=== PATIENT | male | born 1955 | race Caucasian/White ===

== ENCOUNTER 2017-06-17 05:25 | Inpatient (IN) | payer BC, SELFPAY ==
[2017-05-27 10:15] VITALS: BP 134/85; PULSE 68; RESP 17; TEMP 36.9; O2SAT 98; BMI 23.3
--- NOTE | 2017-05-27 10:31 | RAD_ITS ---
STUDY: X-RAY CHEST REASON FOR EXAM: Male, 61 years old. Cough. Preoperative evaluation. TECHNIQUE: PA and lateral views of the chest. COMPARISON: Comparison is made with prior study March 02, 2013. FINDINGS: Hyperinflation. Increased linear markings at the left lung base suggestive of linear atelectasis and/or scarring. No acute infiltrate is seen. There is no demonstrated pleural abnormality. Normal size heart. Normal mediastinum and kenrick. Normal visualized pulmonary arteries. There is atherosclerotic calcification of the aortic arch with tortuosity. There is demineralization of the osseous structures. Normal visualized ribs, clavicles, and shoulders. There is no demonstrated abnormality of the visualized soft tissue structures of the upper abdomen. RAD/Chest PA and Lateral IMPRESSION: Mild increase in markings at the left lung base suggestive of linear scarring and/or atelectasis. Electronically Signed: Justyn Lowe MD at 11:15 EST Tel [phone], Service support ,
--- NOTE | 2017-05-27 10:31 | SDCEKG_ITS ---
Test Reason : Blood Pressure : / mmHG Vent. Rate : 063 BPM Atrial Rate : 063 BPM P-R Int : 196 ms QRS Dur : 086 ms QT Int : 394 ms P-R-T Axes : 059 034 051 degrees QTc Int : 403 ms Normal sinus rhythm Normal ECG Confirmed by NATY DONALDSON ([id number]), desk editor JEEVAN ZAPATA ([id number]) on 05/28/2017 11:32:13 AM Referred By: KANDIS PALM Confirmed By:NATY DONALDSON
[2017-05-27 10:56] LABS: Hematocrit 38.9 % (40-54); Hemoglobin 12.4 g/dl (13.0-16.5); Mean Corp Hgb Conc 31.9 g/gl (32-36); Mean Corpuscular Volume 87.8 fL (80-94); Platelet Count 317 K/mm3 (150-450); RBC Distribution Width CV 14.6 % (11.6-14.6); RBC Distribution Width SD 47.1 fl (35.1-43.9); Red Blood Count 4.43 M/mm3 (4.6-6.2); Scan Indicated on CBC? Y/N NO; White Blood Count 8.8 K/mm3 (4.4-11.0)
[2017-05-27 11:43] LABS: Anion Gap 5 (5-15); BUN 15 mg/dL (7-18); BUN/Creat Ratio 17.1 RATIO (10-20); Calcium,Total 8.8 mg/dL (8.5-10.1); Chloride 106 mmol/L (98-107); Creatinine, Serum 0.88 mg/dL (0.70-1.30); EST Glomerular Filtration Rate 94 mL/min (>60); Est Glom Filt Rate - Afr Amer 113 mL/min (>60); Estimated Creatinine Clearance 93.89 ml/min; Glucose 93 mg/dL (70-110); Potassium 4.4 mmol/L (3.5-5.1); Sodium Level 140 mmol/L (136-145)
[2017-06-17] VITALS (11 sets, daily range): BP systolic 113–149; BP diastolic 68–99; PULSE 60–80; RESP 16–18; TEMP 36.2–36.7; O2SAT 95–100; BMI 23.3; BMI 24.3
[2017-06-17 06:19] LABS: Anion Gap 6 (5-15); BUN 11 mg/dL (7-18); Calcium,Total 8.5 mg/dL (8.5-10.1); Chloride 108 mmol/L (98-107); Creatinine, Serum 0.92 mg/dL (0.70-1.30); EST Glomerular Filtration Rate 89 mL/min (>60); Est Glom Filt Rate - Afr Amer 107 mL/min (>60); Estimated Creatinine Clearance 89.81 ml/min; Glucose 88 mg/dL (74-106); Potassium 3.9 mmol/L (3.5-5.1); Sodium Level 141 mmol/L (136-145)
[2017-06-17] MEDS: Cefazolin 2 GM in 0.9% Normal Saline 100 ML IV (07:23)
--- NOTE | 2017-06-17 07:30 | PROST_PTH ---
PATIENT: ISA HAM LOC: MS3 U#:[id number] AGE/SX: 61/M [place] [facility] [place]: Dr. Jey Becerra MD : 1955 BED: 1 DIS: 06/19/2017 SPEC #: [id number] RECD: 06/18/17 08:23 STATUS: CYNDEE YOSELIN #: [id number] CAMILO: 06/17/17 07:[address]: Jey Becerra DEPT: SURGICAL PATHOLOGY RECD BY: Piper Damon ENTERED: 06/18/17 11:46 SP TYPE: PROSTATE OTHR DR: Dr. Lucius Mahoney MD Tissues: A - Prostate, NOS B - Lymph node of pelvis, NOS C - Lymph node of pelvis, NOS D - Adipose tissue E - Vas deferens, NOS Procedures: Surgery Specimen Level IV Surgery Specimen Level V Surgery Specimen Level HEADER OPERATION: Lap robotic, prostatectomy, radical PRE-OP DIAGNOSIS: Prostate cancer TISSUE SUBMITTED: A. Prostate, B. Left pelvic lymph node, C. Right pelvic lymph node, D. Fat over prostate, E. Right vas deferens and seminal vesicle MICROSCOPIC DIAGNOSIS A. Prostate, radical prostatectomy: Prostatic adenocarcinoma. See cancer summary below. B. Left pelvic lymph node: Five out of five lymph nodes negative for metastatic carcinoma. C. Right pelvic lymph node: Four out of four lymph nodes negative for metastatic carcinoma. D. Fat over prostate: Mature adipose tissue, negative for carcinoma. E. Right vas deferens and seminal vesicle: Seminal vesicle and vas deferens, negative for carcinoma. PROSTATE CANCER (RADICAL) SUMMARY: Procedure ? radical prostatectomy Prostate size ? 6 cm transversely, 4 cm from apex to base and 4 cm anterior-posteriorly Prostate weight ? 74.9 gm Lymph node sampling ? pelvic lymph node dissection Histologic type ? adenocarcinoma (acinar) Histologic grade (Opal Pattern): Primary pattern - 3 Secondary pattern - 4 Tertiary pattern ? not identified Total Opal score - 7 Tumor Quantitation: Proportion (%) of prostate involved by tumor - ~20% Tumor size ? see comment Extraprostatic extension ? not identified Seminal vesicle invasion - not identified Margins ? posterior margin is focally involved by invasive carcinoma (left lobe). Treatment effect on carcinoma ? no known presurgical therapy. Lymph-Vascular invasion - not identified Perineural invasion - present Regional lymph nodes: Number examined - 9 Number involved - 0 Distant metastasis ? not applicable Additional pathologic findings ? benign prostatic hyperplasia, glandular and stromal type. - Chronic inflammation and basal cell hyperplasia. Ancillary studies ? not performed PATHOLOGIC STAGE: pT2c pN0 Mx The above summary is in compliance with [employer] [place] [employer] (CAP) Cancer Protocols Checklist and [place] [employer] Committee on Cancer (AJCC), Staging Manual, 8th Ed. SJ:yohan 06/19/17 COMMENT The tumor is predominantly present in left lobe involving apical, mid portion and basal portion of prostate and present in slides #6, 8, 11, 12, 15, 17, 19 and measures approximately 3.5 x 1.5 x 0.7 cm (measured microscopically). The tumor in the left lobe is present in slide #10 and 13 and measures approximately 2 x 0.5 x 0.6 cm (measured microscopically). Please make reference to previous specimen ([id number]) right prostate, mid, core biopsy and left prostate, mid, core biopsy and left prostate, base, core biopsy with diagnosis of prostatic adenocarcinoma. This case has been reviewed in consultation with Dr. Mark who concurs with the above diagnosis. MICROSCOPIC DESCRIPTION Slides are reviewed. GROSS DESCRIPTION A - Received in fixative is one container labeled with the patient's name and designated prostate. The specimen consists of a radical prostatectomy specimen consisting of prostate with attached portion of right seminal vesicle and vas deferens and left seminal vesicle and vas deferens. The specimen weighs 74.9 gm. The prostate measures 6 cm transversely, 4 cm from apex to base and 4 cm anterior-posteriorly. The portion of right seminal vesicle measures 1.5 x 0.5 x 0.5 cm and right vas deferens measures 2 cm in length and 0.5 cm in diameter. The left seminal vesicle measures 1 x 0.5 x 0.5 cm and left vas deferens measures 2 cm in length and 0.6 cm in diameter. The specimen is inked as follows: anterior ? yellow, posterior ? black, right lateral prostate ? blue, left lateral prostate ? green. Serial sections do not reveal any obvious mass lesion. Drying Machine Back Tender sections are submitted in 20 cassettes as follows: 1 ? right seminal vesicle and vas deferens, 2 ? left seminal vesicle and vas deferens, 3 ? apical (urethral) margin, en face, 4 ? bladder base margin, en face, 5 ? most basal portion of prostate, 69 ? apical portion, prostate, 10-15 ? middle portion, prostate, 16-20 ? basal portion, prostate. B - Received in fixative is one container labeled with the patient's name and designated left pelvic lymph node. The specimen consists of a piece of yellow adipose tissue measuring 3 x 2 x 0.5 cm. One lymph node is identified measuring 1 cm in greatest dimension. It is bisected. The entire specimen is submitted in two cassettes as follows: 1 ? one bisected lymph node inked black and portion of adipose tissue, 2 ? rest of the specimen. C - Received in fixative is one container labeled with the patient's name and designated right pelvic lymph node. The specimen consists of a piece of yellow adipose tissue measuring 3.5 x 3 x 0.5 cm. One lymph node is identified. The entire specimen is submitted in two cassettes as follows: 1 ? one bisected lymph node inked black and portion of adipose tissue, 2 ? rest of the specimen. D - Received in fixative is one container labeled with the patient's name and designated fat over prostate. The specimen consists of a piece of yellow adipose tissue measuring 5.5 x 2 x 1 cm. No mass lesion is identified. The entire specimen is submitted in two cassettes. E - Received in fixative is one container labeled with the patient's name and designated right vas deferens and seminal vesicle. The specimen consists of a portion of vas deferens measuring 2 cm in length and 0.5 cm in diameter. Sections do not reveal any mass lesion. Also present in the container is a piece of seminal vesicle measuring 2 x 1 x 0.5 cm. This piece is bisected and does not reveal any mass lesion. The entire specimen is submitted in two cassettes as follows: 1 ? vas deferens, 2 ? seminal vesicle. / LADARIUS:yohan 06/18/17 TC:0 CPT: 31138, 46294 x2, 72284 x2
[2017-06-17] MEDS: Bupivacaine Mpf 0.5% 30 ML VIAL (11:05)
--- NOTE | 2017-06-17 11:19 | OP.PCM_ITS ---
Problem List (1) Prostate cancer Status: Acute Report of Operation Date of Procedure: 06/17/17 Pre-Operative Diagnosis: Prostate cancer Post-Operative Diagnosis: Same Surgery/Procedure Performed:: Laparoscopic robotic assisted radical prostatectomy bilateral nerve sparing. Bilateral pelvic lymph node dissection. EMG nerve monitoring of the levator muscles and the urethra. Description of Surgical Findings:: 61-year-old male was taken back to the operating room after smooth induction of general anesthesia he was placed in dorsal lithotomy position. He is doing then positioned for approach to the prostate with a robotic approach. He did have prior abdominal surgery. His abdomen was shaved prepped and draped in the usual sterile fashion. I advanced a Veress needle into the peritoneal cavity in the upper abdomen I then filled the peritoneal cavity with CO2 gas I then placed a instructional assistant suction probe suction port 5 mm port in the right upper quadrant of the abdomen we then looked inside the abdomen with a 5 mm scope was a lot of adhesions in the anterior abdominal wall to prior midline incision from prioR sigmoid colectomy. I then placed my #1 robot trocar and then through this to use a scissors to sharply dissect these dense adhesions to the anterior midline of the umbilicus once this was released then I was able to place my camera chart trocar above the umbilicus placed by right arm trocar and my second right arm trocar and then replaced the enterocele trocar. The robot was docked using scissors and the right arm bipolar in the left arm and the progress in the third arm. Firstly able to go down deep into the pelvis behind the bladder and prostate was able to identify the vas deferens traces down inferior leads behind the bladder prostate dissected out the vas deferens and seminal vesicle on the right side we then went to the left side and dissected out the vas deferens and seminal vesicle on the left side using minimal electrocautery and dissecting this out I then created a space below the prostate to dissect towards the apex we then pulled out of the pelvis and proceeded to drop the bladder use the third arm to retract the bladder inferiorly incised the peritoneum along the medial umbilical ligament and drop the bladder into the space of Retzius and created the space also opened up the bladder wing on the left side and dropped the bladder and then we transected through the medial and median umbilical ligament. We then placed bladder on traction using the third arm and then created the space of Retzius a more cleaned out the fat over the prostate this was sent off as a separate specimen I then pulled back and looked at the pelvic lymph nodes of the left side identified the left iliac vein and this pelvic sidewall noted cloque and then dissected all the arnulfo tissue off the pelvic sidewall down to the obturator nerve that was identified use clips to control bleeding vessels and then this tissue was handed off as a specimen grossly appeared negative for sent off as a permanent. I then went to the right side identify the right iliac vein and identified the lymph node packet behind the iliac vein cleaned off the packet off the lateral sidewall place clips along the lateral sidewall and then cleaned the packet off the lateral sidewall down to the obturator nerve and the biomass boiler operator space was cleaned out and then put clips below the packet and this was handed off as a specimen once this was done the pelvic lymph node dissection was completed specimens were handed off a grossly appeared negative but these were sent for permanent I then proceeded with the prostate was incised the endopelvic fascia and the right side and the endopelvic fascia in the left side incised the fascia as it went over the dorsal vein complex dissected the dorsal vein complex circumferentially and then placed a stitch in the dorsal vein complex with a [id number] using a CT1 needle we then pulled back to the bladder and prostate junction remove the catheter back and forth and then dissected the bladder off the prostate using a fairly good bladder neck sparing technique staying right on the muscle of the bladder but not getting not violating the prostate tissue at all but dissecting the the bladder muscle off the prostate we then came across the catheter catheter was pulled pulled back and then pulled up use for traction and then dissected posteriorly between the bladder and the prostate finally the bladder was freed off the prostate. I then entered the posterior space that had already created and identified the vas deferens and seminal vesicle at this point then we used the needle EMG electrode 2 electrodes were placed one on the right side and one on the left side on the levator muscle we used the bipolar to stimulate the EMG and look for action potential was able to identify the nerves of the pudendal muscle deep in the pelvis on the left side and very deep in the pelvis and the right side action potential was stronger on the left than the right side both plexuses were identified I then used clips and clipped through the pedicle of the prostate on the right side and the pedicle proximal to the left side and identified the neurovascular bundle and this was teased off posteriorly off the prostate all the way up to the apex with no violation of the prostate. I then placed clips on the left pedicle and then dissected the neurovascular bundle on the left side all the way up to the prostate after after this was dissected all the way up then freed up the prostate and then circumferentially freed up the prostate around the urethra posteriorly and then transected through the dorsal vein complex and placed a second [id number] stitch in the dorsal vein complex to control bleeding we then dissected circumferentially around the urethra stump then transected through the urethra to separate the prostate from the urethral stump and did come through the midportion of the verumontanum posteriorly. The prostate was freed and put an Endo Catch bag we irrigated the pelvis extensively there was no bleeding. I then performed an anastomosis between the bladder neck and the urethra again this is better experience of the urethral stump was nice pitstop and also had a very small opening of the bladder neck size of the catheter we did his anastomosis coming from the 6:00 to the 12:00 running circumferentially posterior to anterior over a catheter we then placed the [place] tip catheter into the bladder this is irrigated there is no leakage from the anastomosis so decided not to leave a drain in. We then checked the urethra sphincter with the EMG probe again we checked for action potential and EMG and we did get the sphincter to contract with with stimulation with EMG probe after checking for electrolyte activity on the sphincter. We then extracted the prostate through the umbilicus closed the Guercio port with a dental Jeffy Ambrocio stitch and removed all the ports. Subcuticular stitches were placed patient's anesthetic was reversed and is taken back to the PACU in good condition. Type of Anesthesia:: General Drains: WHELAN - Admit VTE Documentation VTE Present on Admission: No VTE Mechan Device Prophylaxis: SCD's VTE Pharm Prophylaxis ordered?: No Reason prophylaxis not ordered:: Treatment Not Indicated
[2017-06-17] MEDS: Ketorolac 15 MG/ML Vial IV ×2 (11:57→17:25)
[2017-06-17] MEDS: 0.9% Normal Saline 1,000 ML 125 ML IV ×2 (12:29→17:23)
[2017-06-17] MEDS: HYDROcodone Bitartrate/Apap 5/325 Tablet PO ×2 (14:45→22:06)
[2017-06-17] MEDS: 0.9% NaCl Peripheral Flush Adult/Peds IV (17:26)
[2017-06-17] MEDS: Ciprofloxacin 500 MG Tablet PO (21:47)
[2017-06-17] MEDS: Docusate Sodium 100 MG Capsule 200 MG PO (21:47)
[2017-06-18] MEDS: Ketorolac 15 MG/ML Vial IV ×4 (00:03→17:55)
[2017-06-18] MEDS: 0.9% Normal Saline 1,000 ML 150 ML IV (01:38)
[2017-06-18 01:39] VITALS: BP 105/55; PULSE 51; RESP 18; TEMP 36.4; O2SAT 98
[2017-06-18 06:00] LABS: Hematocrit 28.7 % (40-54); Hemoglobin 9.2 g/dl (13.0-16.5); Mean Corp Hgb Conc 32.1 g/gl (32-36); Mean Corpuscular Hgb 28.3 pg (27.0-32.0); Mean Corpuscular Volume 88.3 fL (80-94); Mean Platelet Vol. 9.3 fl (6.2-12.0); Platelet Count 284 K/mm3 (150-450); RBC Distribution Width CV 15.1 % (11.6-14.6); RBC Distribution Width SD 49.1 fl (35.1-43.9); Red Blood Count 3.25 M/mm3 (4.6-6.2); White Blood Count 10.4 K/mm3 (4.4-11.0)
[2017-06-18 06:03] LABS: Scan Indicated on CBC? Y/N NO
[2017-06-18 06:18] LABS: Anion Gap 9 (5-15); BUN 14 mg/dL (7-18); BUN/Creat Ratio 16.3 RATIO (10-20); Calcium,Total 7.4 mg/dL (8.5-10.1); Chloride 110 mmol/L (98-107); Creatinine, Serum 0.86 mg/dL (0.70-1.30); EST Glomerular Filtration Rate 96 mL/min (>60); Est Glom Filt Rate - Afr Amer 116 mL/min (>60); Estimated Creatinine Clearance 93.14 ml/min; Glucose 102 mg/dL (74-106); Potassium 4.2 mmol/L (3.5-5.1); Sodium Level 144 mmol/L (136-145)
[2017-06-18] MEDS: HYDROcodone Bitartrate/Apap 5/325 Tablet PO ×2 (06:24→23:47)
--- NOTE | 2017-06-18 07:25 | PCM.PROGNOTE ---
Patient Problems: Active and Suspected Problems Prostate cancer (Acute) Subjective: doing well, has on bolus over night. - Physical Exam General: Alert, Oriented x3, Cooperative HEENT: Atraumatic, PERRLA, EOMI, Normocephalic Neck: Supple, No JVD, Negative Carotid Bruits Lungs: Clear to auscultation, Normal air movement Cardiovascular: Regular rate, No murmurs Abdomen: Bowel Sounds Present, Soft, Non Tender Extremities: No edema, Capillary Refill Less than 3 Seconds Skin: No rashes, No breakdown Musculoskeletal: No Tenderness to Palpation of Joints or Extremities Neurological: Cranial nerves II-XII grossly intact Psych/Mental Status: Normal Affect, Appropriate Vital Signs Temp Pulse Resp BP Pulse Ox 97.6 F L 51 L 18 105/55 L 98 06/18/17 01:39 06/18/17 01:39 06/18/17 01:39 06/18/17 01:39 06/18/17 01:39 Oxygen Delivery Method Room Air Weight: 78.8 kg Body Mass Index (BMI) 24.3 Intake and Output for Last 24 Hours 06/16/17 06/17/17 06/18/17 23:59 23:59 23:59 Intake Total 4285 / 4285 3246 / 3246 Output Total 275 / 275 600 / 600 Balance 4010 / 4010 2646 / 2646 Laboratory Tests Past 24 Hrs 06/18/17 06/18/17 05:32 05:32 WBC 10.4 RBC 3.25 L Hgb 9.2 L Hct 28.7 L MCV 88.3 MCH 28.3 MCHC 32.1 RDW 15.1 H RDW Differential 49.1 H Plt Count 284 MPV 9.3 Sodium 144 Potassium 4.2 Chloride 110 H Carbon Dioxide 25.0 Anion Gap 9 BUN 14 Creatinine 0.86 Estim Creat Clear Calc 93.14 Est GFR (MDRD) Af Amer 116 Est GFR (MDRD) Non-Af 96 BUN/Creatinine Ratio 16.3 Glucose 102 Calcium 7.4 L Assessment/Plan Active and Suspected Problems Prostate cancer (Acute) heplock ivf adv diet as ritchie ambulate home tomorrow in am.
--- NOTE | 2017-06-18 07:26 | PCM.DC.URO ---
Discharge Diet: No Restrictions, Light diet - advance as tolerated Discharge Activity: May not drive while taking narcotic pain medications. May shower in (days): 1 Call your doctor if your incision/area has: Continuous Slow Oozing, Sudden Increased Bleeding, Increased Pain/ Swelling, Increased Redness, Foul Smelling Discharge, Swelling at the incision site Call your doctor if you observe: Fever of 101 or Higher, Inability to have a bowel movement, Shortness of breath, Chest pain, Uncontrolled pain Suture Line Care: Avoid Pulling/Pushing, Avoid Pinching/Bending Cleanse incision/area with: Keep Dressing Clean & Dry Catheter: Velarde to leg bag, Velarde to large bag Drain: [place] Allergies/Adverse Reactions: Allergies No Known Allergies Allergy (Verified 05/27/17 10:10) Medications to take at Discharge Amlodipine [Norvasc] 5 mg PO DAILY 08/27/15 Aspirin [Aspirin, Baby] 81 mg PO DAILY 08/27/15 Lisinopril [Zestril] 5 mg PO DAILY 05/27/17 Ciprofloxacin [Cipro] 500 mg PO BID #20 tab 06/18/17 Docusate Sodium [Colace] 100 mg PO BID #20 cap 06/18/17 Hydrocodone/Acetaminophen [[place] 5-325 Tablet] 1 ea PO Q4H PRN PRN 5 Days #14 tab 06/18/17 The following prescriptions were given: Hydrocodone/Acetaminophen [[place] 5-325 Tablet] 1 ea PO Q4H PRN PRN 5 Days #14 tab PRN Reason: Pain Ciprofloxacin [Cipro] 500 mg PO BID #20 tab Docusate Sodium [Colace] 100 mg PO BID #20 cap Primary Care Physician: Eusebio Mahoney MD [Primary Care Provider] - Please Follow Up With: Jey Becerra MD - you will see [facility], Dr Beth will be available as well. When: Jun 25 at 10am
--- NOTE | 2017-06-18 07:32 | DS.PCM_ITS ---
Discharge Date and Diagnosis - Problem List Patient Problems: Active and Suspected Problems Prostate cancer (Acute) Date of Admission: 06/17/17 Date of Discharge: 06/19/17 - Primary Discharge Diagnosis Active and Suspected Problems Prostate cancer (Acute) Hospital Course and Treatment Operations: - - Robotic Prostatectomy Procedures: None Summary of Care Provided: The patient is a 61 year old male with prostate cancer, s/p radical prostectomy post op course normal, adv reg diet, ambulated, home with holguin to recover. Discharge Diet: No Restrictions, Light diet - advance as tolerated Discharge Activity: May not drive while taking narcotic pain medications. May shower in (days): 1 Call your doctor if your incision/area has: Continuous Slow Oozing, Sudden Increased Bleeding, Increased Pain/ Swelling, Increased Redness, Foul Smelling Discharge, Swelling at the incision site Call your doctor if you observe: Fever of 101 or Higher, Inability to have a bowel movement, Shortness of breath, Chest pain, Uncontrolled pain Suture Line Care: Avoid Pulling/Pushing, Avoid Pinching/Bending Cleanse incision/area with: Keep Dressing Clean & Dry Catheter: Holguin to leg bag, Holguin to large bag Drain: [place] Home Medications: Medications to take at Discharge Amlodipine [Norvasc] 5 mg PO DAILY 08/27/15 Aspirin [Aspirin, Baby] 81 mg PO DAILY 08/27/15 Lisinopril [Zestril] 5 mg PO DAILY 05/27/17 Ciprofloxacin [Cipro] 500 mg PO BID #20 tab 06/18/17 Docusate Sodium [Colace] 100 mg PO BID #20 cap 06/18/17 Hydrocodone/Acetaminophen [Star 5-325 Tablet] 1 ea PO Q4H PRN PRN 5 Days #14 tab 06/18/17 Following Prescrptions Were Given to Patient: Hydrocodone/Acetaminophen [Star 5-325 Tablet] 1 ea PO Q4H PRN PRN 5 Days #14 tab PRN Reason: Pain Ciprofloxacin [Cipro] 500 mg PO BID #20 tab Docusate Sodium [Colace] 100 mg PO BID #20 cap Primary Care Physician: Eusebio Mahoney MD [Primary Care Provider] - Please Follow Up With: Jey Becerra MD - you will see [facility], Dr Beth will be available as well. When: Jun 25 at 10am Meaningful Use Info Meaningful Use Diagnoses (Choose all that apply): None applicable
[2017-06-18 07:39] VITALS: BP 98/67; PULSE 66; RESP 16; TEMP 36.7; O2SAT 98
[2017-06-18 07:50] VITALS: O2SAT 99
[2017-06-18] MEDS: Docusate Sodium 100 MG Capsule 200 MG PO ×2 (08:06→21:52)
[2017-06-18] MEDS: amLODIPine 5 MG Tablet PO (08:06)
[2017-06-18] MEDS: Ciprofloxacin 500 MG Tablet PO ×2 (08:06→21:52)
[2017-06-18] MEDS: Lisinopril 5 MG Tablet PO (08:06)
--- NOTE | 2017-06-18 10:33 | CASEMGMT ---
RN CM Face to Face with patient for initial transition planning/care coordination assessment. RN CM introduced self and role at [facility]. Patient lying in bed, alert and oriented, family at bedside. Patient willing to participate in assessment and is able to answer all questions appropriately. Care providers, pharmacy, and demographics verified. See link attached. Patient wishes to discharge home, denies need for home health at this time. Patient states he has no further needs or concerns at this time. CM to follow for discharge planning needs that may arise. Disposition Plan: Patient to discharge home with family support and follow-up needs in place.
[2017-06-18] MEDS: 0.9% NaCl Peripheral Flush Adult/Peds IV ×2 (12:13→17:58)
[2017-06-18 13:45] VITALS: BP 120/74; PULSE 62; RESP 16; TEMP 36.8; O2SAT 98
[2017-06-18 20:00] VITALS: BP 136/84; PULSE 72; RESP 18; TEMP 36.4; O2SAT 96
[2017-06-19 02:00] VITALS: BP 121/74; PULSE 80; RESP 18; TEMP 37.1; O2SAT 97
[2017-06-19] MEDS: HYDROcodone Bitartrate/Apap 5/325 Tablet PO (06:05)
[2017-06-19 07:55] VITALS: O2SAT 98
[2017-06-19 08:00] VITALS: BP 135/85; PULSE 72; RESP 18; TEMP 37.2; O2SAT 98
[2017-06-19] MEDS: amLODIPine 5 MG Tablet PO (08:44)
[2017-06-19] MEDS: Ciprofloxacin 500 MG Tablet PO (08:44)
[2017-06-19] MEDS: Lisinopril 5 MG Tablet PO (08:44)
== END 2017-06-19 10:45 | disposition home or self-care (01) | DRG 707 ==
LOC: ACINP 05:26 → MS3 10:38
PROVIDERS: Anesthesiology; Admitting Provider Urology; Family Provider Family Medicine; PCP Family Medicine; Visit Provider Urology
PROC: 0VT04ZZ Resection of Prostate, Percutaneous Endoscopic Approach (ICD-10-PCS; CPT 55866; principal; 2017-06-17 07:10)
DX: C61 Malignant neoplasm of prostate (principal); C18.9 Malignant neoplasm of colon, unspecified; I10 Essential (primary) hypertension; Z79.82 Long term (current) use of aspirin; Z87.891 Personal history of nicotine dependence; R31.21 Asymptomatic microscopic hematuria; R97.20 Elevated prostate specific antigen [PSA]; R35.1 Nocturia
CPT/HCPCS: 36415; 80048; 85027; 86850; 86900; 88302; 88304; 88305; 88307; 88309; 97802; J7030; J7040; J7120; A4216; J2405

== ENCOUNTER → 2017-06-30 14:13 | Outpatient (CLI) | payer BC, SELFPAY ==
--- NOTE | 2017-06-30 14:15 | CT_ITS ---
STUDY: CT ABDOMEN AND PELVIS WITHOUT CONTRAST REASON FOR EXAM: Male, 61 years old. Prostate cancer, now recently status post prostatectomy. Abdominal pain and hematuria. Additional surgical history of appendectomy, partial colectomy, hernia repair. RADIATION DOSAGE (If Supplied By Facility): CTDIvol = ( 6.3 ) mGy, DLP = ( 317.7 ) mGycm TECHNIQUE: Transaxial images were obtained from the dome of the diaphragm to the symphysis pubis without oral contrast, and without intravenous contrast. Sagittal and coronal images were reconstructed. Individualized dose optimization techniques were used for this CT. COMPARISON: None. FINDINGS: Minor curvilinear scarring in the visualized lung bases. The visualized portions of the heart are within normal limits. Well-defined 1.55 x 1.45 x 1.55 cm subcapsular lesion of 17 Hounsfield unit density in the high right lobe of the liver suggests a complex cyst. A second similar appearing 7.5 mm lesion is seen in the anterior upper right lobe on series 2 image 15, and there is a third subcapsular 9 mm lesion in the anterior aspect of segment 4 on series 2 image 48.. There are 2 additional [id number] lesions in the inferior anteromedial right lobe of the liver. One is 9 mm (series 2 image 50), while the second is 13 x 10 x 12 mm (series 2 image 53, series 601 image 35). The diameter of the portal vein near the jil hepatis is 11.5 mm. Normal gallbladder and extrahepatic biliary system. The common bile duct diameter is 5 mm. There are 2 benign calcified granulomata of the spleen. Normal pancreas. Normal right adrenal gland. Stable borderline fullness of left adrenal gland. There is an exophytic 15 x 12 x 13 mm cortical cyst at the anterior hilar lip of the right kidney. A second 10 mm cortical cyst slightly more lateral anterior mid pole is only faintly visualized on series 2 image 62. Normal left kidney. No hydronephrosis. Normal visualized stomach. Normal small intestine. Ring of anastomotic sutures seen about the ascending colon in the mid right flank. There is non-visualization of the appendix. There is free intraperitoneal gas There is stable mild atherosclerotic calcification of the abdominal aorta with minor ectasia and tortuosity, but without a demonstrated aneurysm. Normal inferior vena cava. Normal retroperitoneum. The urinary bladder is collapsed around a Velarde catheter. Mildly heterogeneous 5.45 x 6.9 x 4.3 cm soft tissue density posterior to the bladder is likely a hematoma. The heterogeneous, mildly enlarged prostate gland that was inferior to the bladder floor on prior CT is no longer present. There is gas in the deep subcutaneous tissues of the right anterior abdominal wall, extending through the inguinal region into the visualized anterior right upper thigh. There is a very small left-sided inguinal hernia containing adipose tissue. There are stable degenerative changes of the visualized spine at L5-S1. Nearly 90 degree angulation between the first and second coccygeal segments is unchanged, as is near complete fusion across the sacroiliac joints. CT/Abdomen/Pelvis without Cont IMPRESSION: 1. The prostate gland has been removed. A 6.9 cm soft tissue density posterior to the urinary bladder is likely a hematoma. The bladder itself is decompressed around a Velarde catheter. 2. Gas in the deep subcutaneous tissues of the right anterior abdominal/pelvic wall, extending to the visualized anterior right upper thigh. Small volume intraperitoneal gas also noted. I discussed these findings with Dr. Becerra, who notes this is a common postsurgical finding secondary to insufflation under pressure used during the prostatectomy, even a few weeks after the procedure. 3. Stable cortical cysts in the anterior midpole of the right kidney. No hydronephrosis. 4. Stable low-density lesions in the liver consistent with complicated cysts. 5. Ring of anastomotic sutures again seen at the mid ascending colon. No sign of bowel obstruction. The appendix is not visualized. 6. Stable mild atherosclerotic calcification and ectasia of the abdominal aorta. 7. Stable degenerative changes of the spine and pelvis, as described. N.B. : The above information has been verbally conveyed by Vinnie Burks MD to Jey Becerra, Referring Physician, on 06/30/2017 15:06:41 (ET). Electronically Signed: Vinnie Burks MD at 15:14 EST , Service support , N.B. : The above information has been verbally conveyed by Vinnie Burks MD to Jey Becerra, Referring Physician, on 06/30/2017 15:06:41 (ET).
== END ==
PROVIDERS: Family Provider Family Medicine; PCP Family Medicine; Visit Provider Urology
DX: C61 Malignant neoplasm of prostate (principal); R10.9 Unspecified abdominal pain; R31.9 Hematuria, unspecified
CPT/HCPCS: 74176

== ENCOUNTER 2017-08-28 16:10 | Observation (INO) | payer BC, SELFPAY ==
[2017-08-28 16:11] VITALS: BP 170/113; PULSE 92; RESP 16; TEMP 35.8; O2SAT 99; BMI 23.3
--- NOTE | 2017-08-28 17:18 | CT_ITS ---
STUDY: CT BRAIN WITHOUT CONTRAST REASON FOR EXAM: Male, 62 years old. Dizziness RADIATION DOSAGE (If Supplied By Facility): CTDIvol = ( 44.99 ) mGy, DLP = ( 829.85 ) mGycm TECHNIQUE: Transaxial CT imaging of the brain was performed without administration of intravenous contrast material. Individualized dose optimization techniques were used for this CT. COMPARISON: None. FINDINGS: There is no acute bleed or infarct. There are normal white matter tracts. The ventricles are normal in configuration. There is no hydrocephalus. There is mucosal hypertrophy in the left maxillary sinus. The visualized paranasal sinuses are otherwise clear. The mastoid air cells are well aerated. There is no skull fracture. CT/Brain/Head without Contrast IMPRESSION: No acute intracranial abnormality. Left maxillary sinusitis. Electronically Signed: Kaushal Abreu, at 18:04 EDT Tel , Service support ,
[2017-08-28 17:40] LABS: Partial Thromboplast Time 32.7 Seconds (24.1-36.2); Prothrombin Time (Protime)PT. 13.4 SECONDS (11.7-14.9)
[2017-08-28 18:06] LABS: ALB/GLOB Ratio 0.8 RATIO (0.9-2.4); AST(SGOT) 9 U/L (15-37); Alanine Aminotransfer ALT/SGPT 10 U/L (16-61); Albumin, Serum 3.5 g/dL (3.2-5.0); Alkaline Phosphatase 85 U/L (45-117); BUN 15 mg/dL (7-18); BUN/Creat Ratio 16.1 RATIO (10-20); Calcium,Total 8.6 mg/dL (8.5-10.1); Creatinine, Serum 0.93 mg/dL (0.70-1.30); EST Glomerular Filtration Rate 88 mL/min (>60); Est Glom Filt Rate - Afr Amer 107 mL/min (>60); Estimated Creatinine Clearance 87.72 ml/min; Globulin 4.3 g/dL (2.2-4.2); Glucose 153 mg/dL (74-106); Protein, Total 7.8 g/dL (6.4-8.2)
[2017-08-28 18:07] LABS: Anion Gap 8 (5-15); Chloride 106 mmol/L (98-107); Potassium 3.1 mmol/L (3.5-5.1); Sodium Level 139 mmol/L (136-145)
[2017-08-28 20:40] VITALS: BP 123/89; PULSE 79; RESP 15; TEMP 36.8; O2SAT 96
[2017-08-28 23:00] VITALS: BP 118/76; PULSE 64; PULSE 75; RESP 16; TEMP 36.9; O2SAT 97
[2017-08-28 23:59] LABS: AST(SGOT) 8 U/L (15-37); Alanine Aminotransfer ALT/SGPT 9 U/L (16-61); Albumin, Serum 2.9 g/dL (3.2-5.0); Alkaline Phosphatase 74 U/L (45-117); Bilirubin, Direct 0.12 mg/dL (0.00-0.30); Globulin 3.8 g/dL (2.2-4.2); Protein, Total 6.7 g/dL (6.4-8.2); Thyroid Stim Hormone (TSH) 0.31 uIU/mL (0.358-3.74)
[2017-08-29 00:02] VITALS: BMI 23.3
--- NOTE | 2017-08-29 01:06 | ED.DCSUM_ITS ---
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 Elected dizzy spinning sensations with nausea 15 minutes after. Started vomiting EMS and here in the ED. States 5 days ago had similar episode 2 times which resolved. Again a week prior to that. Prior to initial symptoms no previous similar symptoms. Dealing with some congestion for the past week. No speech changes. No hemiparesis. Patient history of hypertension and prostate cancer with recent prostatectomy June 15 of this year, followed by Dr. Becerra. Denies abdominal pain. No chest pains or shortness of breath. Physical Examination: General: Alert and oriented ?3, mild distress HEENT: Normocephalic, atraumatic. Moist mucosa membranes. Right side horizontal nystagmus. Neck: supple, nontender. No meningismus Cardiovascular: Regular rate and rhythm, no murmurs Respiratory: Normal breath sounds, symmetric, no distress Abdomen: Soft, nontender, nondistended Extremities: Nontender, no edema, pulses intact ?4 Neuro: no focal neurological deficits. Test Results: EKG: Sinus rhythm [address] or T-wave changes. CT head negative. CBC normal. Potassium 3.1. Creatinine 0.92. Emergency Department Course and Treatment: Patient symptomatic in the ED. IV fluids given. Phenergan given. Nausea improved however he still had dizzy sensations. CT head negative. Patient was given Compazine 10 mg IV. Symptoms much more improved however still has symptoms. No previous similar symptoms past with acute dizziness. Discuss with hospitalist for admission. Treatment Plan: [] Disposition: Admission Impression: 1. Symptomatic vertigo 2. Hypokalemia This note was generated with [employer] software. It may contain incorrect words, spelling, and punctuation that were not noted in review of the chart prior to signing ED Disposition - Plan for ED Patient: Disposition: Home or Assisted Living Chief Complaint: Dizziness Diagnosis: Acute epidemic vertigo
--- NOTE | 2017-08-29 01:21 | ED.RN ---
see patient down time charting from [id number]
[2017-08-29 03:00] VITALS: PULSE 62
[2017-08-29 03:25] VITALS: BP 117/73; PULSE 77; RESP 14; TEMP 36.9; O2SAT 95
[2017-08-29 04:03] LABS: Absolute Lymphocyte Count 2.47 X10^3/ul (0.83-4.51); Absolute Neutrophil Count 6.4 X10^3/uL (2.0-7.7); Basophil# 0.04 X10^3/uL; Basophil% 0.4 % (0-1); Eosinophil# 0.14 X10^3/uL; Eosinophils% 1.4 % (0-5); Hematocrit 36.5 % (40-54); Hemoglobin 11.9 g/dl (13.0-16.5); Lymphocyte # 2.47 X10^3/ul (4.0); Lymphocyte % 25.1 % (19-41); Mean Corp Hgb Conc 32.6 g/gl (32-36); Mean Corpuscular Hgb 27.8 pg (27.0-32.0); Mean Corpuscular Volume 85.3 fL (80-94); Mean Platelet Vol. 8.6 fl (6.2-12.0); Monocyte# 0.79 X10^3/uL; Neutrophil # 6.37 X10^3/uL (2.7-7.7); Neutrophil % 64.9 % (47-70); Platelet Count 369 K/mm3 (150-450); RBC Distribution Width CV 13.7 % (11.6-14.6); RBC Distribution Width SD 42.8 fl (35.1-43.9); Red Blood Count 4.28 M/mm3 (4.6-6.2); White Blood Count 9.8 K/mm3 (4.4-11.0)
[2017-08-29 04:09] LABS: POSITIVE COUNT NO; POSITIVE DIFFERENTIAL NO; POSITIVE MORPHOLOGY NO
[2017-08-29 04:27] LABS: Anion Gap 7 (5-15); BUN 13 mg/dL (7-18); BUN/Creat Ratio 17.5 RATIO (10-20); Calcium,Total 8.5 mg/dL (8.5-10.1); Chloride 108 mmol/L (98-107); Creatinine, Serum 0.74 mg/dL (0.70-1.30); EST Glomerular Filtration Rate 114 mL/min (>60); Est Glom Filt Rate - Afr Amer 137 mL/min (>60); Estimated Creatinine Clearance 110.24 ml/min; Glucose 87 mg/dL (74-106); Potassium 3.9 mmol/L (3.5-5.1); Sodium Level 142 mmol/L (136-145)
[2017-08-29] MEDS: Enoxaparin 40 MG/0.4 ML Syringe SC (06:40)
[2017-08-29 06:57] VITALS: PULSE 70
--- NOTE | 2017-08-29 07:22 | MRI_ITS ---
STUDY: MRI BRAIN WITHOUT CONTRAST REASON FOR EXAM: Male, 62 years old. Dizziness, blurred vision and generalized weakness. TECHNIQUE: Standardized multiplanar fat and water weighted pulse sequences were obtained. COMPARISON: CT of the head dated August 28, 2017. FINDINGS: There is mild cerebral atrophy with widening of the extra-axial spaces and ventricular dilatation. Normal white matter tracts of the supratentorial brain. There is no evidence for recent intracranial ischemia or other cause of cytotoxic edema on diffusion weighted imaging (DWI). Normal T2* images of the brain without demonstrated susceptibility artifact. There is no demonstrated hemosiderin stain. Normal bilateral basal ganglia. Normal thalami. There is no extra-axial fluid accumulation. There appears to be a small right parafalcine nodule measuring approximately 7.4 x 11.8 x 9.1 mm in size. This could represent a small meningioma. Normal flow voids within the major intracranial circulation suggesting patency by spin echo criteria. Normal sella turcica, pituitary gland, infundibular stalk, optic chiasm and hypothalamus. Normal tectal plate and pineal gland. Normal midbrain, aide and medulla. Normal cerebellum. Normal basal cisterns. Normal bilateral temporal bones. Normal bilateral internal auditory canals. No demonstrated orbital abnormality, within the constraints of a routine brain study. There is moderate to comparison thickening in the left maxillary sinus, and left sphenoid sinus. There is mild mucoperiosteal thickening in the right maxillary sinus and bilateral ethmoid sinuses. Normal calvarium and skull base. Normal visualized soft tissue structures. Normal visualized upper cervical spine. MRI/Brain without Contrast IMPRESSION: 1. Involutional changes of the brain, as described above. 2. Apparent small right parafalcine nodule possibly representing meningioma. 3. No MR evidence for acute infarct. 4. Extensive chronic left maxillary, sphenoid and ethmoid sinus disease. Electronically Signed: Tali Henry MD at 11:41 EDT , Service support ,
[2017-08-29 07:25] VITALS: BP 117/74; PULSE 70; RESP 18; TEMP 36.8; O2SAT 96
--- NOTE | 2017-08-29 08:41 | PCM.HP.STD ---
Problem List (1) Acute epidemic vertigo Status: Chronic History of Present Illness Date of Admission: 08/28/17 Chief Complaint: Dizziness The patient is a 62 year old M past medical history of essential hypertension and prostate cancer status post recent prostatectomy who presented to the emergency room due to dizziness. 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 He described spinning sensations associated with nausea and vomiting. He activated the EMS and he was taken to the emergency room. He had similar episode 5 days prior but that resolved . In the emergency room included a CT scan of the brain there was none acute we are placing him in the hospital for further management. Past Medical History Past Medical History (Chronic Problems): Chronic Problems Acute epidemic vertigo (Chronic) Allergies No Known Allergies Allergy (Verified 08/28/17 16:13) Home Medications: Ambulatory Orders Medication Instructions Recorded Amlodipine [Norvasc] 5 mg PO DAILY 08/27/15 Aspirin [Aspirin, Baby] 81 mg PO DAILY 08/27/15 Lisinopril [Zestril] 10 mg PO DAILY 05/27/17 Docusate Sodium [Colace] 100 mg PO BID #20 cap 06/18/17 Hydrocodone/Acetaminophen [[place] 1 ea PO Q4H PRN PRN 5 Days #14 tab 06/18/17 5-325 Tablet] Meclizine HCl [Antivert] 25 mg PO Q6H PRN PRN #20 tab 08/29/17 Smoking Status: Former smoker Tobacco Use: Non-smoker - *Family History Maternal History Items: No pertinent history Review of Systems Comment: Review of systems VTE Information - Inpt Only VTE Present on Admission: No VTE Mechan Device Prophylaxis: SCD's VTE Pharm Prophylaxis ordered?: No - Physical Exam General: Alert, Oriented x3 HEENT: Atraumatic Neck: Supple, No JVD Lungs: Clear to auscultation, No wheeze, No rales Cardiovascular: Normal S1, Normal S2 Abdomen: Bowel Sounds Present, Soft, Non Tender Neurological: Cranial nerves II-XII grossly intact, Deep Tendon Reflexes 2+/4 and Symmetrical Vital Signs Temp Pulse Resp BP Pulse Ox 98.0 F 66 16 117/87 H 97 08/29/17 11:25 08/29/17 11:25 08/29/17 11:25 08/29/17 11:25 08/29/17 11:25 Oxygen Delivery Method Room Air Body Mass Index (BMI) 23.3 Assessment/Plan 1. intractable dizziness; has chronic vertigo but states the symptoms are different today. Will continue on as needed meclizine and will obtain MRI of the brain and go from there. 2. Hypertension; we will resume his home medications. 3. history of prostatic CA status post recent prostatectomy. 4. DVT Prophylaxis with Lovenox. Code Visit OBSV E&M: 34764 Initial observation care L3
[2017-08-29] MEDS: Aspirin 81 MG TAB.CHEW PO (10:25)
[2017-08-29 11:21] VITALS: PULSE 70
[2017-08-29 11:25] VITALS: BP 117/87; PULSE 66; RESP 16; TEMP 36.7; O2SAT 97
--- NOTE | 2017-08-29 13:56 | CASEMGMT ---
Face to Face with patient for initial transition planning/care coordination assessment. SELENA SEPULVEDA introduced self and role at [facility], pt voices understanding and consents to assessment at this time. Pt is sitting up in bed in no distress at this time. Pt A/O x4 at this time and answers all questions appropriately at this time. Care providers, pharmacy, and demographics verified. See attached link. Pt voices no further concerns/needs at this time. Advised pt to ask for CM if any further questions/concerns/needs arise, voices understanding. PLAN: [place] SELENA SEPULVEDA
--- NOTE | 2017-08-29 14:30 | PCM.DC ---
- Discharge Diagnoses Current Active Problems: Current Active and Chronic Problems Acute epidemic vertigo (Acute) You will use the following diet at home:: Cardiac Your food should be the consistency of: Regular Your liquids should be the consistency of: Regular/Thin Discharge Activity: Return to Normal Activity Additional Instructions: Outpatient vestibular therapy as ordered. Allergies/Adverse Reactions: Allergies No Known Allergies Allergy (Verified 08/28/17 16:13) Medications to take at Discharge Amlodipine [Norvasc] 5 mg PO DAILY 08/27/15 Aspirin [Aspirin, Baby] 81 mg PO DAILY 08/27/15 Lisinopril [Zestril] 10 mg PO DAILY 05/27/17 Docusate Sodium [Colace] 100 mg PO BID #20 cap 06/18/17 Hydrocodone/Acetaminophen [[place] 5-325 Tablet] 1 ea PO Q4H PRN PRN 5 Days #14 tab 06/18/17 Meclizine HCl [Antivert] 25 mg PO Q6H PRN PRN #20 tab 08/29/17 The following prescriptions were given: Meclizine HCl [Antivert] 25 mg PO Q6H PRN PRN #20 tab PRN Reason: Dizziness Primary Care Physician: Eusebio Mahoney MD [Primary Care Provider] - Please follow up with your Primary Care Physician in: 1-2 weeks Proposed Discharge Date: 08/29/17
[2017-08-29 14:47] VITALS: BMI 23.3
--- NOTE | 2017-08-29 15:01 | DS.PCM_ITS ---
<Isma Hilton - Last Filed: 08/29/17 14:50> Discharge Date and Diagnosis Date of Admission: 08/28/17 Date of Discharge: 08/29/17 - Primary Discharge Diagnosis Active and Suspected Problems Acute epidemic vertigo (Acute) - BPPV HTN sinusitis Hx prostate CA s/p radical prostetectomy Hospital Course and Treatment Imaging Results: 08/29/17 07:22 Brain without Contrast [MRI] Urgent - negative for acute infarct, , Involutional changes of the brain, small right parafalcine nodule possibly representing a meningioma, extensive chronic left maxillary sphenoid and ethmoid sinus disease Operations: None, - - Robotic Prostatectomy Procedures: None Summary of Care Provided: Physical exam on day of discharge: General: Resting comfortably NAD Psych: A/Ox3 normal affect HEENT: PEARRLA AT NC Neck: Supple NT CV: RRR no m/t/r/g/h Resp: CTA Abd: [id number] Soft NT no guarding or rigidity Ext: DP2+= no edema Skin: W/D normal turgor Lymph/Heme: No active bleeding or adenopathy Neuro: CN2-12 intact, mild slow nystagmus, lateral, with both left and right gaze. Unable to elicit vertigo or worsening nystagmus with Mary Jo-Hallpike maneuvers at this time. Hospital Course: The patient is a 62 year old M with a history of hypertension, prostate cancer status post radical prostatectomy, who presented to the emergency room with chief complaint of episodic dizziness that lasted for about 1-2 hours. He had had 2 prior episodes 1 1 week ago that lasted for about an hour, and 1 2 weeks ago that lasted for about an hour as well. These resolve spontaneously on their own and were associated with changing of head position. He did not notice any ringing in his ears and did not have any hearing changes. He described it as sudden onset of the room spinning. He had some associated nausea with it. He did not have any difficulty swallowing, facial droop, double vision, headache, focal weaknesses or paresthesias. He was given meclizine and admitted to the PCU. He had no events on the monitor. CT of the brain was without bleeding. An MRI of the brain was done for follow-up. Both CT and MRI did show significant sinusitis. He did state that he had recently been recovering from sinusitis. He also had a possible meningioma on MRI. He had no further dizziness after admission to the hospital. He was felt to have episodic vertigo from BPPV. He was given a prescription for meclizine, he was advised to try Mucinex to help clear out his sinuses. He was also given a prescription to pursue outpatient vestibular therapy. I advised him to follow- up with his PCP in 1-2 weeks. He was discharged home in stable condition. This patient was seen by Isma Hilton PA-C under the supervision of Doctor Lurdes.[] Discharge Diet: Low fat/ Low Cholesterol, 4000 mg Sodium Diet Discharge Activity: Return to Normal Activity Home Medications: Medications to take at Discharge Amlodipine [Norvasc] 5 mg PO DAILY 08/27/15 Aspirin [Aspirin, Baby] 81 mg PO DAILY 08/27/15 Lisinopril [Zestril] 10 mg PO DAILY 05/27/17 Docusate Sodium [Colace] 100 mg PO BID #20 cap 06/18/17 Hydrocodone/Acetaminophen [[place] 5-325 Tablet] 1 ea PO Q4H PRN PRN 5 Days #14 tab 06/18/17 Meclizine HCl [Antivert] 25 mg PO Q6H PRN PRN #20 tab 08/29/17 Following Prescrptions Were Given to Patient: Meclizine HCl [Antivert] 25 mg PO Q6H PRN PRN #20 tab PRN Reason: Dizziness Primary Care Physician: Eusebio Mahoney MD [Primary Care Provider] - Please follow up with your Primary Care Physician in: 1-2 weeks Please Follow Up With: Eusebio Mahoney MD Disposition: Home Minutes spent on discharge:: 40 Patient Condition:: Stable Medical Necessity - Tobacco Use Smoking Status: Former smoker Tobacco Use: Non-smoker Meaningful Use Info Meaningful Use Diagnoses (Choose all that apply): None applicable <Td Chatman - Last Filed: 08/30/17 07:18> Hospital Course and Treatment Operations: None, - Procedures: None Summary of Care Provided: Seen and examined independent. Agree the above note by the physician inventory control assistant. The patient is a 62 year old M presents with intermittent vertigo. But this episode lasted for about an hour. Just occurred spontaneously and worse with positional changes. Patient underwent a workup, including an MRI, that was negative. Given the patient's symptomatology, is my feeling the patient had benign paroxysmal positional vertigo. Recommend the patient take meclizine as needed with the patient was made aware that the meclizine would not fix the underlying process but recommend patient follow-up with the physical therapy for vestibular rehab. Patient was doing well and was discharged home. [] Discharge Diet: Low fat/ Low Cholesterol, 4000 mg Sodium Diet Discharge Activity: Return to Normal Activity Disposition: Home Patient Condition:: Stable Meaningful Use Info Meaningful Use Diagnoses (Choose all that apply): None applicable Code Visit OBSV E&M: 80405 Observation care discharge
== END 2017-08-29 14:31 | disposition home or self-care (01) ==
LOC: ED 16:52 → PCU 08-29 01:06
PROVIDERS: Admitting Provider Internal Medicine; Emergency Provider Emergency Medicine; Family Provider Family Medicine; PCP Family Medicine
DX: H81.10 Benign paroxysmal vertigo, unspecified ear (principal); I10 Essential (primary) hypertension; Z85.46 Personal history of malignant neoplasm of prostate; J32.0 Chronic maxillary sinusitis; E87.6 Hypokalemia; Z79.899 Other long term (current) drug therapy; Z79.82 Long term (current) use of aspirin; Z87.891 Personal history of nicotine dependence
CPT/HCPCS: 36415; 70450; 70551; 80048; 80053; 80076; 84443; 84484; 85025; 85610; 85730; 92526; 93005; 96372; 97110; 97161; 99218; 99281; 99283; J7030; G0378; J2405

== ENCOUNTER 2017-09-01 09:41 | Outpatient (RCR) | payer BC, SELFPAY ==
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
== END 2017-09-01 19:00 | disposition home or self-care (01) ==
LOC: PT 09:41
PROVIDERS: Family Provider Family Medicine; PCP Family Medicine; Visit Provider Physician Assistant
DX: R42 Dizziness and giddiness (principal)
CPT/HCPCS: 97162

== ENCOUNTER → 2017-09-01 10:50 | Outpatient (CLI) | payer BC, SELFPAY ==
[2017-09-01 12:10] LABS: PSA,Total- Diagnostic < 0.01 ng/mL (0.0-4.0)
== END ==
PROVIDERS: Family Provider Family Medicine; PCP Family Medicine; Visit Provider Urology
DX: C61 Malignant neoplasm of prostate (principal)
CPT/HCPCS: 36415; 84153

== ENCOUNTER → 2017-09-30 07:22 | Outpatient (CLI) | payer BC, SELFPAY ==
--- NOTE | 2017-09-30 07:24 | CT_ITS ---
STUDY: CT MAXILLOFACIAL SINUSES REASON FOR EXAM: Male, 62 years old. One-month history of sinusitis and vertigo. Patient has a history of prostate cancer and colon cancer. RADIATION DOSAGE (If Supplied By Facility): CTDIvol = ( 33.45 ) mGy, DLP = ( 748.17 ) mGycm TECHNIQUE: The patient was scanned in a multi detector CT scanner. High resolution axial imaging was performed without the administration of intravenous contrast material. Sagittal and coronal images were reconstructed. Individualized dose optimization techniques were used for this CT. COMPARISON: None. FINDINGS: FRONTAL SINUSES: Normal aeration, without mucosal inflammatory disease. ETHMOIDAL SINUSES: Mucosal thickening of the ethmoid sinuses bilaterally. MAXILLARY SINUSES: Mucosal thickening at the base of the left maxillary sinus. SPHENOIDAL SINUSES: Normal aeration, without mucosal inflammatory disease. There is patency of the bilateral maxillary infundibuli with normal uncinate processes, ethmoid bullae, and hiatus semilunaris. Normal bilateral middle turbinates. There is hypertrophy of the right inferior nasal turbinate. There is a left sided nasal septal deviation, but without a nasal septal spur. There is patency of the bilateral nasal airways. The visualized osseous structures are normal. The visualized bilateral orbital contents are normal. CT/Sinus/Facial Bone IMPRESSION: Mucosal thickening of the ethmoid sinuses and the inferior aspect of the left maxillary sinus. Electronically Signed: Justyn Lowe MD at 9:03 EDT Tel [phone], Service support ,
== END ==
PROVIDERS: Family Provider Family Medicine; PCP Family Medicine; Visit Provider Family Medicine
DX: J32.9 Chronic sinusitis, unspecified (principal)
CPT/HCPCS: 70486

== ENCOUNTER → 2017-12-07 13:18 | Outpatient (CLI) | payer BC, SELFPAY ==
[2017-12-07 14:39] LABS: PSA,Total- Diagnostic < 0.01 ng/mL (0.0-4.0)
== END ==
PROVIDERS: Family Provider Family Medicine; PCP Family Medicine; Visit Provider Urology
DX: C61 Malignant neoplasm of prostate (principal)
CPT/HCPCS: 36415; 84153

== ENCOUNTER → 2018-05-03 11:51 | Outpatient (CLI) | payer BC, SELFPAY ==
[2018-05-03 11:50] VITALS: BMI 24.3
[2018-05-03 15:29] LABS: Absolute Neutrophil Count 5.6 X10^3/uL (2.0-7.7); Basophil# 0.07 X10^3/uL; Basophil% 0.9 % (0-1); Eosinophil# 0.13 X10^3/uL; Eosinophils% 1.6 % (0-5); Hematocrit 39.1 % (40-54); Hemoglobin 12.5 g/dl (13.0-16.5); Lymphocyte % 18.8 % (19-41); Mean Corpuscular Hgb 27.5 pg (27.0-32.0); Mean Corpuscular Volume 85.9 fL (80-94); Monocyte# 0.65 X10^3/uL; Monocyte% 8.1 % (0-10); Neutrophil # 5.62 X10^3/uL (2.7-7.7); Neutrophil % 70.5 % (47-70); Platelet Count 420 K/mm3 (150-450); RBC Distribution Width CV 14.1 % (11.6-14.6); RBC Distribution Width SD 44.4 fl (35.1-43.9); Red Blood Count 4.55 M/mm3 (4.6-6.2)
[2018-05-03 15:35] LABS: POSITIVE COUNT NO; POSITIVE DIFFERENTIAL NO; POSITIVE MORPHOLOGY NO
[2018-05-03 15:41] LABS: ALB/GLOB Ratio 0.7 RATIO (0.9-2.4); AST(SGOT) 9 U/L (15-37); Alanine Aminotransfer ALT/SGPT 11 U/L (16-61); Albumin, Serum 3.1 g/dL (3.2-5.0); Alkaline Phosphatase 85 U/L (45-117); Anion Gap 7 (5-15); BUN 13 mg/dL (7-18); Calcium,Total 8.7 mg/dL (8.5-10.1); Chloride 107 mmol/L (98-107); EST Glomerular Filtration Rate 81 mL/min (>60); Est Glom Filt Rate - Afr Amer 98 mL/min (>60); Ferritin 79 ng/mL (26-388); Globulin 4.3 g/dL (2.2-4.2); Glucose 91 mg/dL (74-106); Iron 47 ug/dL (65-175); Potassium 4.2 mmol/L (3.5-5.1); Protein, Total 7.4 g/dL (6.4-8.2); Sodium Level 143 mmol/L (136-145); Thyroid Stim Hormone (TSH) 1.28 uIU/mL (0.358-3.74); Vitamin B12 408 pg/mL (211-911); Vitamin D,25 Hydroxy 13.6 ng/mL (29.95-100.01)
[2018-05-03 15:42] LABS: Erythrocyte Sedimentation Rate 14 mm/hr (0-20)
[2018-05-07 14:05] LABS: Endomysial Antibody IgA Negative (Negative)
[2018-05-09 13:03] LABS: Deamidated Gliadin IgA 5 units (0-19); Deamidated Gliadin IgG 3 units (0-19); Immunoglobulin A 297 mg/dL (61-437); t-Transglutaminase IgA <2 U/mL (0-3)
== END ==
PROVIDERS: Family Provider Family Medicine; PCP Family Medicine; Visit Provider Family Medicine
DX: R53.83 Other fatigue (principal); R19.7 Diarrhea, unspecified
CPT/HCPCS: 36415; 80053; 82306; 82607; 82728; 82784; 83516; 83540; 84403; 84443; 85025; 85652; 86140; 86255

== ENCOUNTER → 2018-05-06 13:37 | Outpatient (CLI) | payer BC, SELFPAY ==
[2018-05-03 11:50] VITALS: BMI 24.3
[2018-05-06 18:05] LABS: PSA,Total- Diagnostic 0.01 ng/mL (0.0-4.0)
== END ==
PROVIDERS: Family Provider Family Medicine; PCP Family Medicine; Visit Provider Family Medicine
DX: R97.20 Elevated prostate specific antigen [PSA] (principal); R53.83 Other fatigue; R19.7 Diarrhea, unspecified
CPT/HCPCS: 36415; 82274; 83630; 84153; 87177; 87209; 87493; 87506

== ENCOUNTER → 2018-05-17 13:32 | Outpatient (CLI) | payer BC, SELFPAY ==
[2018-05-03 11:50] VITALS: BMI 24.3
--- NOTE | 2018-05-17 13:35 | CT_ITS ---
STUDY: CT ABDOMEN AND PELVIS WITH CONTRAST REASON FOR EXAM: Male, 62 years old. Diarrhea. History of colon cancer and prostate cancer. RADIATION DOSAGE (If Supplied By Facility): CTDIvol = ( 10.04 ) mGy, DLP = ( 519.42 ) mGycm TECHNIQUE: Transaxial images were obtained from the dome of the diaphragm to the symphysis pubis with oral contrast. 100 ml of Isovue 300 contrast was administered. Sagittal and coronal images were reconstructed. Individualized dose optimization techniques were used for this CT. COMPARISON: 06/30/2017 FINDINGS: The visualized lung bases are clear. The visualized portions of the heart and pericardium are within normal limits. There are no calcified gallstones present. There are stable cysts noted in the liver. The spleen is normal in size. There are stable calcified granulomata in the spleen. The pancreas is within normal limits. The adrenal glands are within normal limits. There are no renal or ureteral stones. There is no hydronephrosis. There are no focal renal lesions. Normal visualized stomach. There is no bowel obstruction. There is bowel wall thickening in the distal ileum which is consistent with enteritis. The patient is status post appendectomy. The aorta is normal in caliber. There is right lower quadrant mesenteric lymphadenopathy noted. There is no free air, free fluid or fluid collection. The patient is status post prostatectomy. There are no destructive osseous lesions. CT/Abdomen/Pelvis WITH Contrast IMPRESSION: Bowel wall thickening in the distal ileum which is consistent with enteritis. Right lower quadrant lymphadenopathy. Electronically Signed: Kaushal Abreu, at 22:07 EST Tel , Service support ,
== END ==
PROVIDERS: Family Provider Family Medicine; PCP Family Medicine; Referring Provider Family Medicine; Visit Provider Family Medicine
DX: R19.7 Diarrhea, unspecified (principal)
CPT/HCPCS: 74177; Q9967

== ENCOUNTER → 2018-05-19 13:39 | Outpatient (CLI) | payer BC, SELFPAY ==
[2018-05-03 11:50] VITALS: BMI 24.3
[2018-05-19 17:01] LABS: Absolute Lymphocyte Count 1.53 X10^3/ul (0.83-4.51); Absolute Neutrophil Count 6.4 X10^3/uL (2.0-7.7); Basophil# 0.06 X10^3/uL; Basophil% 0.7 % (0-1); Eosinophil# 0.13 X10^3/uL; Eosinophils% 1.4 % (0-5); Hematocrit 40.1 % (40-54); Hemoglobin 12.6 g/dl (13.0-16.5); Lymphocyte # 1.53 X10^3/ul (4.0); Mean Corp Hgb Conc 31.4 g/gl (32-36); Mean Corpuscular Hgb 27.2 pg (27.0-32.0); Mean Corpuscular Volume 86.6 fL (80-94); Mean Platelet Vol. 9.6 fl (6.2-12.0); Monocyte# 0.83 X10^3/uL; Monocyte% 9.2 % (0-10); Neutrophil # 6.42 X10^3/uL (2.7-7.7); Neutrophil % 71.5 % (47-70); Platelet Count 382 K/mm3 (150-450); RBC Distribution Width CV 14.4 % (11.6-14.6); RBC Distribution Width SD 45.1 fl (35.1-43.9); Red Blood Count 4.63 M/mm3 (4.6-6.2)
[2018-05-19 17:07] LABS: POSITIVE COUNT NO; POSITIVE DIFFERENTIAL NO; POSITIVE MORPHOLOGY NO
[2018-05-19 18:46] LABS: Erythrocyte Sedimentation Rate 45 mm/hr (0-20)
[2018-05-21 12:28] LABS: Carcinoembryonic Antigen 1.5 ng/mL (0.0-4.7)
== END ==
PROVIDERS: Family Provider Family Medicine; PCP Family Medicine; Visit Provider Family Medicine
DX: R19.7 Diarrhea, unspecified (principal); C18.9 Malignant neoplasm of colon, unspecified
CPT/HCPCS: 36415; 82378; 85025; 85652; 86140

== ENCOUNTER → 2018-06-17 14:13 | Outpatient (CLI) | payer BC, SELFPAY ==
[2018-05-03 11:50] VITALS: BMI 24.3
[2018-06-17 16:42] LABS: PSA,Total- Diagnostic 0.01 ng/mL (0.0-4.0)
== END ==
PROVIDERS: Family Provider Family Medicine; PCP Family Medicine; Referring Provider Urology; Visit Provider Urology
DX: C61 Malignant neoplasm of prostate (principal)
CPT/HCPCS: 36415; 84153

== ENCOUNTER → 2018-11-30 12:35 | Outpatient (CLI) | payer BC, SELFPAY ==
[2018-05-03 11:50] VITALS: BMI 24.3
--- NOTE | 2018-11-30 12:40 | RAD_ITS ---
STUDY: X-RAY - CERVICAL SPINE REASON FOR EXAM: Male, 63 years old. Neck pain and headache TECHNIQUE: 5 view(s) of the cervical spine were obtained. COMPARISON: None FINDINGS: Normal anterior atlantoaxial articulation. Normal odontoid process. Normal cervical lordosis. Normal vertebral bodies and endplates. Normal disc space heights. Normal visualized intervertebral neuroforamina. The soft tissue structures are unremarkable. RAD/Cerv Spine 4 or 5 Views IMPRESSION: Normal x-ray examination of the visualized cervical spine. Electronically Signed: Vinnie Shane MD at 14:07 EDT , Service support ,
--- NOTE | 2018-11-30 12:40 | RAD_ITS ---
STUDY: X-RAY - LUMBAR SPINE REASON FOR EXAM: Male, 63 years old. Low back pain TECHNIQUE: 5 view(s) of the lumbar spine were obtained. COMPARISON: None FINDINGS: There is straightening of the normal lumbar lordosis. There is no substantial scoliosis. There is a normal alignment of the vertebrae. There is multilevel endplate spondylosis of the lumbar vertebrae. Mild disc space narrowing. There is no demonstrated fracture. The soft tissue structures are unremarkable. RAD/L/S Spine Min 4 Views IMPRESSION: Mild degenerative changes, no acute findings Electronically Signed: Vinnie Shane MD at 14:09 EDT , Service support ,
[2018-11-30 14:08] LABS: Absolute Lymphocyte Count 1.77 X10^3/uL (0.83-4.51); Absolute Neutrophil Count 5.6 X10^3/uL (2.0-7.7); Basophil# 0.11 X10^3/uL; Basophil% 1.3 % (0-1); Eosinophil# 0.23 X10^3/uL; Eosinophils% 2.7 % (0-5); Hematocrit 37.3 % (40-54); Hemoglobin 11.8 g/dL (13.0-16.5); Lymphocyte # 1.77 X10^3/ul (4.0); Lymphocyte % 20.9 % (19-41); Mean Corp Hgb Conc 31.6 g/dL (32-36); Mean Corpuscular Hgb 27.1 pg (27.0-32.0); Mean Corpuscular Volume 85.6 fL (80-94); Mean Platelet Vol. 9.5 fl (6.2-12.0); Monocyte# 0.75 X10^3/uL; Monocyte% 8.9 % (0-10); NRBC Flagged by Analyzer 0 % (0-5); Neutrophil # 5.56 X10^3/uL (2.7-7.7); Neutrophil % 65.8 % (47-70); Platelet Count 418 K/mm3 (150-450); RBC Distribution Width CV 13.3 % (11.6-14.6); RBC Distribution Width SD 41.6 fl (35.1-43.9); Red Blood Count 4.36 M/mm3 (4.6-6.2); White Blood Count 8.5 K/mm3 (4.4-11.0)
[2018-11-30 14:34] LABS: Erythrocyte Sedimentation Rate 27 mm/hr (0-20)
[2018-11-30 14:35] LABS: ALB/GLOB Ratio 0.7 RATIO (0.9-2.4); AST(SGOT) 9 U/L (15-37); Alanine Aminotransfer ALT/SGPT 14 U/L (16-61); Albumin, Serum 3.2 g/dL (3.2-5.0); Alkaline Phosphatase 92 U/L (45-117); Anion Gap 8 (5-15); BUN 14 mg/dL (7-18); BUN/Creat Ratio 13.6 RATIO (10-20); Calcium,Total 9.1 mg/dL (8.5-10.1); Chloride 103 mmol/L (98-107); Creatinine, Serum 1.03 mg/dL (0.70-1.30); EST Glomerular Filtration Rate 77 mL/min (>60); Est Glom Filt Rate - Afr Amer 94 mL/min (>60); Globulin 4.5 g/dL (2.2-4.2); Glucose 105 mg/dL (74-106); Potassium 3.9 mmol/L (3.5-5.1); Protein, Total 7.7 g/dL (6.4-8.2); Rheumatoid Factor < 10.0 IU/mL (<15); Sodium Level 140 mmol/L (136-145); Uric Acid 5.3 mg/dL (3.5-7.2)
[2018-12-02 09:09] LABS: ANTINUCLEAR ANTIBODIES DIRECT Negative (Negative)
[2018-12-06 14:08] LABS: Lyme IgG P18 Ab Absent (.); Lyme IgG P23 Ab Absent (.); Lyme IgG P28 Ab Absent (.); Lyme IgG P30 Ab Absent (.); Lyme IgG P39 Ab Absent (.); Lyme IgG P41 Ab Absent (.); Lyme IgG P45 Ab Absent (.); Lyme IgG P58 Ab Absent (.); Lyme IgG P66 Ab Absent (.); Lyme IgG P93 Ab Absent (.); Lyme IgM P23 Ab Absent (.); Lyme IgM P39 Ab Absent (.); Lyme IgM P41 Ab Absent (.)
[2018-12-07 14:01] LABS: HLA B27 Negative (.); Lyme IgG WB Interpretation Negative (.); Lyme IgM WB Interpretation Negative (.)
== END ==
PROVIDERS: Family Provider Family Medicine; PCP Family Medicine; Referring Provider Family Medicine; Visit Provider Family Medicine
DX: M54.2 Cervicalgia (principal); M54.9 Dorsalgia, unspecified; M25.50 Pain in unspecified joint
CPT/HCPCS: 36415; 72050; 72110; 80053; 81374; 84443; 84550; 85025; 85652; 86038; 86140; 86431; 86617

== ENCOUNTER → 2018-12-20 11:47 | Outpatient (CLI) | payer BC, SELFPAY ==
[2018-05-03 11:50] VITALS: BMI 24.3
[2018-12-20 13:11] LABS: PSA,Total- Diagnostic 0.02 ng/mL (0.0-4.0)
== END ==
PROVIDERS: Family Provider Family Medicine; PCP Family Medicine; Referring Provider Urology; Visit Provider Urology
DX: C61 Malignant neoplasm of prostate (principal)
CPT/HCPCS: 36415; 84153

== ENCOUNTER → 2019-06-22 14:03 | Outpatient (CLI) | payer BC, SELFPAY ==
[2018-05-03 11:50] VITALS: BMI 24.3
[2019-06-22 15:45] LABS: PSA,Total- Diagnostic 0.02 ng/mL (0.0-4.0)
== END ==
PROVIDERS: PCP Family Medicine; Referring Provider Urology; Visit Provider Urology
DX: C61 Malignant neoplasm of prostate (principal)
CPT/HCPCS: 36415; 84153

== ENCOUNTER → 2019-07-06 15:40 | Outpatient (CLI) | payer BC, SELFPAY ==
[2018-05-03 11:50] VITALS: BMI 24.3
--- NOTE | 2019-07-06 15:49 | CT_ITS ---
STUDY: CT ABDOMEN AND PELVIS WITH CONTRAST REASON FOR EXAM: Male, 63 years old. MICRO HEMATURIA, HTN,HX-COLON AND PROSTATE CA appendectomy, hernia repair, back surgery, prostate biopsy, partial colectomy, RADIATION DOSAGE (If Supplied By Facility): CTDIvol = ( 11.02 ) mGy, DLP = ( 988.37 ) mGycm TECHNIQUE: Transaxial images were obtained from the dome of the diaphragm to the symphysis pubis without oral contrast. Oral and amp; IV and amp; 100mL Isovue-300 was administered. Sagittal and coronal images were reconstructed. Individualized dose optimization techniques were used for this CT. COMPARISON: May 17, 2018 FINDINGS: There is minor scarring at both lung bases.. The visualized portions of the heart are within normal limits. Small hiatal hernia is present. Liver is normal size. There are multiple tiny cysts. Bile ducts are not dilated. Normal gallbladder and extrahepatic biliary system. Tiny granulomatous calcifications are seen within the spleen. Normal pancreas. Normal bilateral adrenal glands. Normal right kidney. Normal left kidney. Normal visualized stomach. No evidence for small bowel obstruction. There is nonspecific thickening of the veloz of the distal ileum which may be consistent with nonspecific ileitis without stranding in the fat at this time. Postsurgical changes are seen status post resection of the right colon. Minor diverticular changes in the sigmoid colon without evidence for acute diverticulitis. Multiple small subcentimeter pericecal nodes without associated stranding in the fat. Appendix not visualized consistent with appendectomy. Mild atherosclerotic changes of the aorta without evidence for aneurysm Normal inferior vena cava. Normal retroperitoneum. Incompletely distended thick-walled bladder of indeterminate etiology but may be consistent with nonspecific cystitis.. Clinical correlation recommended Normal abdominal wall. Lumbar spine demonstrates mild spondylosis. CT/Abdomen/Pelvis W IV Cont ONLY IMPRESSION: Normal bilateral kidneys.. Incompletely distended thick-walled bladder of uncertain significance although may be consistent with nonspecific cystitis. Postop changes status post resection of the right colon and appendix. Findings suggestive of nonspecific enteritis without associated inflammatory changes possibly chronic. Other findings as above Electronically Signed: Michel Richardson MD at 17:13 EST , Service support ,
[2019-07-06 16:16] LABS: CREATININE FINGERSTICK 1.2 mg/dL (0.70-1.30); EGFR FINGERSTICK > 60.0000 mL/min (>60)
== END ==
PROVIDERS: PCP Family Medicine; Referring Provider Urology; Visit Provider Urology
DX: C61 Malignant neoplasm of prostate (principal); R31.21 Asymptomatic microscopic hematuria
CPT/HCPCS: 74177; Q9967

== ENCOUNTER → 2019-07-11 11:28 | Outpatient (CLI) | payer BC, SELFPAY ==
[2018-05-03 11:50] VITALS: BMI 24.3
[2019-07-11 15:55] LABS: Vitamin B12 369 pg/mL (211-911)
[2019-07-11 16:06] LABS: ALB/GLOB Ratio 0.7 RATIO (0.9-2.4); AST(SGOT) 13 U/L (15-37); Alanine Aminotransfer ALT/SGPT 17 U/L (16-61); Alkaline Phosphatase 86 U/L (45-117); Anion Gap 5 (5-15); BUN 13 mg/dL (7-18); BUN/Creat Ratio 12.1 RATIO (10-20); Calcium,Total 8.8 mg/dL (8.5-10.1); Chloride 101 mmol/L (98-107); Creatinine, Serum 1.07 mg/dL (0.70-1.30); EST Glomerular Filtration Rate 74 mL/min (>60); Est Glom Filt Rate - Afr Amer 90 mL/min (>60); Ferritin 93 ng/mL (26-388); Globulin 4.3 g/dL (2.2-4.2); Glucose 88 mg/dL (74-106); Iron 27 ug/dL (65-175); Potassium 4.3 mmol/L (3.5-5.1); Prealbumin 15.4 mg/dL (20.0-40.0); Protein, Total 7.3 g/dL (6.4-8.2); Sodium Level 134 mmol/L (136-145)
[2019-07-11 16:29] LABS: Absolute Lymphocyte Count 1.73 X10^3/uL (0.83-4.51); Absolute Neutrophil Count 5.4 X10^3/uL (2.0-7.7); Basophil# 0.11 X10^3/uL; Basophil% 1.3 % (0-1); Eosinophil# 0.15 X10^3/uL; Eosinophils% 1.8 % (0-5); Hemoglobin 11.8 g/dL (13.0-16.5); Lymphocyte # 1.73 X10^3/ul (4.0); Lymphocyte % 21.1 % (19-41); Mean Corp Hgb Conc 31.1 g/dL (32-36); Mean Corpuscular Hgb 26.9 pg (27.0-32.0); Mean Corpuscular Volume 86.8 fL (80-94); Mean Platelet Vol. 9.3 fl (6.2-12.0); Monocyte# 0.74 X10^3/uL; NRBC Flagged by Analyzer 0 % (0-5); Neutrophil # 5.43 X10^3/uL (2.7-7.7); Neutrophil % 66.4 % (47-70); Platelet Count 441 K/mm3 (150-450); RBC Distribution Width CV 13.7 % (11.6-14.6); RBC Distribution Width SD 43.6 fl (35.1-43.9); Red Blood Count 4.38 M/mm3 (4.6-6.2); White Blood Count 8.2 K/mm3 (4.4-11.0)
[2019-07-11 17:15] LABS: Erythrocyte Sedimentation Rate 29 mm/hr (0-20)
[2019-07-14 14:09] LABS: CCP IgG Antibodies 13 units (0-19)
== END ==
PROVIDERS: PCP Family Medicine; Visit Provider Family Medicine
DX: R53.83 Other fatigue (principal); D64.9 Anemia, unspecified; R63.4 Abnormal weight loss; K52.9 Noninfective gastroenteritis and colitis, unspecified; M25.50 Pain in unspecified joint; I10 Essential (primary) hypertension; W57.XXXA Bitten or stung by nonvenomous insect and other nonvenomous arthropods, initial encounter
CPT/HCPCS: 36415; 80053; 82607; 82728; 83540; 84134; 85025; 85652; 86140; 86200

== ENCOUNTER 2019-07-22 15:41 | Observation (INO) | payer BC, SELFPAY ==
[2018-05-03 11:50] VITALS: BMI 24.3
[2019-07-22 15:41] VITALS: BP 151/90; PULSE 88; RESP 20; TEMP 36.2; O2SAT 99; BMI 22.2
--- NOTE | 2019-07-22 15:51 | EKG12_ITS ---
Test Reason : Blood Pressure : / mmHG Vent. Rate : 085 BPM Atrial Rate : 085 BPM P-R Int : 194 ms QRS Dur : 094 ms QT Int : 382 ms P-R-T Axes : 060 012 052 degrees QTc Int : 454 ms Normal sinus rhythm Normal ECG Confirmed by ALBIN ALTAMIRANO, KATHRYN ([id number]), supervising film or videotape editor ELIZABETH JOSE ([id number]) on 07/25/2019 1:49:19 PM Referred By: NIKOLAY Confirmed By:DEMETRIA TALAMANTES MD
--- NOTE | 2019-07-22 15:52 | ED.VIS.GEN ---
History of Present Illness Chief Complaint: Dizziness Informant: Patient Onset: Today Current Severity: Moderate Maximum Severity: Moderate Narrative: Patient has a history of vertigo. When he got up from bed this morning he said he felt slight vertigo but it resolved. This afternoon, approximate hour ago, he states it returned and was more severe. Has had nausea and vomiting with it as well. He denies sudden head movement or change in position just prior to this episode being triggered. He was admitted in August [address] and MRI at that time were unremarkable. - Past Medical History (1) Hypertension Status: Chronic (2) Prostate cancer Status: Chronic (3) Acute epidemic vertigo Status: Chronic Past Medical History - Allergies and Home Meds Allergies/Adverse Reactions: Allergies No Known Allergies Allergy (Verified 07/22/19 15:45) Primary Care Physician: Austin Brewer DO [Primary Care Provider] - Prior records reviewed: Yes Lives: Spouse/ Significant Other Smoking Status: Former smoker Review of Systems General: Denies: Chills, Fever Eyes: Denies: Visual changes - bilaterally ENT: Denies: Bilateral ear pain Cardiovascular: Denies: Chest pain, Palpitations Respiratory: Denies: Dyspnea, Cough, Sputum Gastrointestinal: Reports: Nausea, Vomiting Musculoskeletal: Denies: Extremity Pain Neurological: Denies: Headache Allergy: Denies: Uticaria Physical Exam Vital Signs/Narrative: Vital Signs Temp Pulse Resp BP Pulse Ox 07/22/19 15:41 97.1 F L 88 20 H 151/90 H 99 Inital Vital Signs reviewed: Yes General: Well nourished, Well developed Head: Normocephalic ENT: Moist mucous membranes Cardiovascular: Regular rate, Regular rhythm Respiratory: No distress, CTA bilaterally Abdomen: Soft, Nontender, Hypoactive bowel sounds Skin: Normal color Neurological: Alert, Oriented x3 Diagnostic/Tx/Re-eval 07/22/19 17:08 Brain/Head without Contrast [CT] Stat Laboratory Results 07/22/19 07/22/19 16:10 16:10 WBC 12.8 H RBC 4.49 L Hgb 12.3 L Hct 37.9 L MCV 84.4 MCH 27.4 MCHC 32.5 RDW Std Deviation 41.3 RDW Coeff of Yue 13.3 Plt Count 485 H MPV 9.0 Immature Gran % (Auto) 0.500 Neut % (Auto) 74.9 H Lymph % (Auto) 15.8 L [place] % (Auto) 6.9 Eos % (Auto) 1.2 Baso % (Auto) 0.7 Absolute Neuts (auto) 9.5 H Absolute Lymphs (auto) 2.02 Nucleated RBC % 0 Sodium 136 Potassium 4.2 Chloride 104 Carbon Dioxide 26.0 Anion Gap 6 BUN 21 H Creatinine 1.11 Estim Creat Clear Calc 68.75 Est GFR (MDRD) Af Amer 86 Est GFR (MDRD) Non-Af 71 BUN/Creatinine Ratio 18.9 Glucose 171 H Calcium 9.1 - EKG Initial EKG Interpretation: Sinus Rhythm - Sinus at 85 with no acute ischemia. - Medical Decision Making Patient was given IV fluids, Zofran, and Ativan. On repeat evaluation vomiting is improved. Patient still has significant vertigo anytime he opens his eyes. Patient was sent for CT scan. This is unremarkable per my review. Hospitalist will see the patient for admission. ED Disposition - Plan for ED Patient: Disposition: Acute Care Hospital [facility] Diagnosis: Vertigo Referrals: Austin Brewer DO [Primary Care Provider] -
[2019-07-22] MEDS: 0.9% Normal Saline 1,000 ML 150 ML IV ×2 (16:07→22:08)
[2019-07-22] MEDS: LORazepam 2 MG/ML Syringe 0.5 MG IV (16:08)
[2019-07-22] MEDS: Ondansetron 4 MG/2 ML Vial IV (16:08)
[2019-07-22 16:28] LABS: Absolute Lymphocyte Count 2.02 X10^3/uL (0.83-4.51); Absolute Neutrophil Count 9.5 X10^3/uL (2.0-7.7); Basophil# 0.09 X10^3/uL; Basophil% 0.7 % (0-1); Eosinophil# 0.15 X10^3/uL; Eosinophils% 1.2 % (0-5); Hematocrit 37.9 % (40-54); Hemoglobin 12.3 g/dL (13.0-16.5); Lymphocyte # 2.02 X10^3/ul (4.0); Lymphocyte % 15.8 % (19-41); Mean Corp Hgb Conc 32.5 g/dL (32-36); Mean Corpuscular Hgb 27.4 pg (27.0-32.0); Mean Corpuscular Volume 84.4 fL (80-94); Monocyte# 0.88 X10^3/uL; Monocyte% 6.9 % (0-10); NRBC Flagged by Analyzer 0 % (0-5); Neutrophil # 9.54 X10^3/uL (2.7-7.7); Neutrophil % 74.9 % (47-70); Platelet Count 485 K/mm3 (150-450); RBC Distribution Width CV 13.3 % (11.6-14.6); RBC Distribution Width SD 41.3 fl (35.1-43.9); Red Blood Count 4.49 M/mm3 (4.6-6.2); White Blood Count 12.8 K/mm3 (4.4-11.0)
[2019-07-22 16:29] LABS: Anion Gap 6 (5-15); BUN 21 mg/dL (7-18); BUN/Creat Ratio 18.9 RATIO (10-20); Calcium,Total 9.1 mg/dL (8.5-10.1); Chloride 104 mmol/L (98-107); Creatinine, Serum 1.11 mg/dL (0.70-1.30); EST Glomerular Filtration Rate 71 mL/min (>60); Est Glom Filt Rate - Afr Amer 86 mL/min (>60); Estimated Creatinine Clearance 68.75 ml/min; Glucose 171 mg/dL (74-106); Potassium 4.2 mmol/L (3.5-5.1); Sodium Level 136 mmol/L (136-145)
--- NOTE | 2019-07-22 17:08 | CT_ITS ---
STUDY: CT BRAIN WITHOUT CONTRAST REASON FOR EXAM: Male, 64 years old. Sudden onset dizziness. Hx of vertigo. Hx of HTN and colon and prostate cancer RADIATION DOSAGE (If Supplied By Facility): CTDIvol = ( 44.99 ) mGy, DLP = ( 812.98 ) mGycm TECHNIQUE: Transaxial CT imaging of the brain was performed without administration of intravenous contrast material. Individualized dose optimization techniques were used for this CT. COMPARISON: Prior head CT exam of August 28, 2017 FINDINGS: Normal soft tissue structures. Normal calvarium. Negative for osteolytic or blastic bone lesions. Normal size ventricles and extra-axial spaces for the patient''s age. Normal white matter tracts of the cerebral hemispheres. Normal basal ganglia and thalami. Normal brainstem. Normal cerebellum. There is no intracranial hemorrhage. There are no findings of an acute ischemic infarction. Normal visualized paranasal sinuses. CT/Brain/Head without Contrast IMPRESSION: Normal unenhanced CT scan of the brain. Electronically Signed: Lois Hare MD at 17:35 EDT , Service support ,
[2019-07-22] MEDS: proMETHazine 25 MG/ML Syringe 12.5 MG IV (17:46)
[2019-07-22 17:48] VITALS: BP 132/88; PULSE 76; RESP 16; TEMP 36.2; O2SAT 98
--- NOTE | 2019-07-22 18:07 | HP.PCM_ITS ---
Problem List (1) Prostate cancer Status: Chronic (2) Hypertension Status: Chronic (3) Vertigo Status: Acute History of Present Illness Date of Admission: 07/22/19 Chief Complaint: Vertigo. The patient is a 64 year old M who presents emergency room due to vertigo. Patient reports a history of BPPV with prior admission August 2017. Patient states he felt mildly dizzy this morning which seemed to resolve. He then went to work and at about 3:00 this afternoon developed sudden severe dizziness with room spinning, nausea and was unable to walk due to unsteady gait. He denies vi junito changes, focal deficits or other neurologic symptoms. He reports worsening of symptoms with minimal movement and had increased symptoms during brain CT which was ordered from ER. He has a past medical history of hypertension, colon cancer status post partial colectomy, prostate cancer status post prostatectomy. Patient also reports ongoing diarrhea for the past few months along with genera lized joint aching. He was referred to Dr. Garcia for colonoscopy however his appointment is not for another couple months. Patient reports following eating, his food comes out whole. He denies abdominal pain, blood in stool or nausea, vomiting with exception to nausea related to acute vertigo. Past Medical History Past Medical History (Chronic Problems): Chronic Problems Prostate cancer (Chronic) Hypertension (Chronic) Allergies No Known Allergies Allergy (Verified 07/22/19 15:45) Home Medications: Ambulatory Orders Medication Instructions Recorded Amlodipine [Norvasc] 5 mg PO DAILY 08/27/15 Aspirin [Aspirin, Baby] 81 mg PO DAILY 08/27/15 Hemp Oil 1 tab PO DAILY 07/22/19 Lisinopril [Zestril] 20 mg PO DAILY 07/22/19 Surgical History: - - Radical prostatectomy, bilateral pelvic lymph node dissection, laparoscopic right hemicolectomy, appendectomy, right inguinal hernia repair 1960, lumbar back surgery for herniated disc 2012. Lives: Spouse/ Significant Other Smoking Status: Former smoker Tobacco Use: Cigars - Occasional Alcohol: None Drugs: None - *Family History Maternal History Items: - - Denies known maternal medical history including cardiac history. Currently living, in her 90s. Paternal History Items: Heart Disease Review of Systems Constitutional: Denies: Chills, Fever, Weight Change HEENT: Denies: Head Aches, Sinus Congestion, Sinus Drainage Cardiovascular: Denies: Chest Pain, Palpitations Respiratory: Denies: Cough, Shortness of breath at rest, Sputum production Gastrointestinal: Reports: Diarrhea, Nausea, Vomiting. Denies: Abdominal Pain, Hematochezia, Melena Genitourinary: Denies: Dysuria Musculoskeletal: Denies: Joint Pain, Joint Tenderness Skin: Denies: Rash, Wounds Neurological: Reports: Balance problems - Related to vertigo, - - Vertigo, dizziness. Denies: Double vision, Change in Speech, Slurred speech, Confusion, Focal weakness Psychiatric: Denies: Anxiety, Depression, Homicidal Ideations, Suicidal Id eations Hematologic/ Lymphatic: Denies: Easy Bruising, Easy Bleeding VTE Information - Inpt Only VTE Present on Admission: No VTE Mechan Device Prophylaxis: None VTE Pharm Prophylaxis ordered?: Yes Patient Problems: Active and Suspected Problems Vertigo (Acute) - Physical Exam Vitals/I&O's: Vital Signs Temp Pulse Resp BP Pulse Ox 97.1 F L 76 16 132/88 H 98 07/22/19 17:48 07/22/19 17:48 07/22/19 17:48 07/22/19 17:48 07/22/19 17:48 Oxygen Delivery Method Room Air Weight: 159 lb 6.307 oz Body Mass Index (BMI) 22.2 General: Alert, Oriented x3, Cooperative HEENT: Atraumatic, PERRLA, EOMI, Normocephalic Neck: Supple, No JVD, Negative Carotid Bruits Lungs: Clear to auscultation, Normal air movement Cardiovascular: Regular rate, Regular Rhythm, Normal S1, Normal S2, No murmurs Abdomen: Bowel Sounds Present, Soft, Non Tender, Non-Distended Extremities: No clubbing, No cyanosis, No edema, Capillary Refill Less than 3 Seconds Skin: No rashes, No breakdown Musculoskeletal: No Tenderness to Palpation of Joints or Extremities Neurological: Cranial nerves II-XII grossly intact, Neuro grossly intact Psych/Mental Status: Normal Affect, Appropriate Laboratory Results 07/22/19 16:10: WBC 12.8 H, RBC 4.49 L, Hgb 12.3 L, Hct 37.9 L, MCV 84.4, MCH 27.4, MCHC 32.5, RDW Std Deviation 41.3, RDW Coeff of Yue 13.3, Plt Count 485 H, MPV 9.0, Immature Gran % (Auto) 0.500, Neut % (Auto) 74.9 H, Lymph % (Auto) 15.8 L, [place] % (Auto) 6.9, Eos % (Auto) 1.2, Baso % (Auto) 0.7, Absolute Neuts (auto) 9.5 H, Absolute Lymphs (auto) 2.02, Nucleated RBC % 0 07/22/19 16:10: Sodium 136, Potassium 4.2, Chloride 104, Carbon Dioxide 26.0, Anion Gap 6, BUN 21 H, Creatinine 1.11, Estim Creat Clear Calc 68.75, Est GFR (MDRD) Af Amer 86, Est GFR (MDRD) Non-Af 71, BUN/Creatinine Ratio 18.9, Glucose 171 H, Calcium 9.1 Current Medications Sodium Chloride () 1,000 mls @ 150 mls/hr IV .[id number] [facility] Last Admin: 07/22/19 16:07 Dose: 150 mls/hr Documented by: Assessment/Plan All Active Problems Vertigo (Acute) 1. Acute BPPV-brain CT unremarkable. Prior admission in 2018 with work-up including MRI which was normal, treated for BPPV at that time as well. PRN valium given severity of symptoms. PRN antiemetics. PT eval/vestibular therapy. 2. Hypertension-stable, continue lisinopril, amlodipine regimen. 3. Ongoing diarrhea with generalized joint aching-patient reports this is been ongoing for months. Referred to GI, Dr. Garcia. Prior scope by Dr. Peter one year ago for routine cancer surveillance given history of colon cancer. Patient unable to have scope with GI for a couple months. Recommend scope by Dr. Peter given reported severity of symptoms. 4. History of colon cancer status post laparoscopic right hemicolectomy 5. History of prostate cancer status post radical prostatectomy DVT prophylaxis-Lovenox subcu This patient was seen by COLIN Dominique under the supervision of Dr. Posey.
[2019-07-22 18:22] VITALS: PULSE 78
[2019-07-22 18:26] VITALS: BP 135/87; PULSE 85; RESP 16; TEMP 36.4; O2SAT 99
[2019-07-22 18:27] VITALS: BMI 21.4
[2019-07-22 18:31] VITALS: BMI 21.4
[2019-07-22 19:23] VITALS: PULSE 68
[2019-07-22 21:31] LABS: Hemoglobin A1c 6.1 % (4.2-6.3)
[2019-07-22] MEDS: Meclizine HCl 25 MG Tablet PO (22:05)
[2019-07-22 23:35] VITALS: BP 108/59; PULSE 65; RESP 16; TEMP 36.7; O2SAT 98
[2019-07-23 03:38] VITALS: BP 107/75; BP 108/63; BP 115/76; PULSE 83; PULSE 89; PULSE 90
[2019-07-23 03:40] VITALS: BP 108/63; PULSE 83; RESP 16; TEMP 36.8; O2SAT 97
[2019-07-23] MEDS: 0.9% Normal Saline 1,000 ML 150 ML IV ×2 (04:24→12:46)
[2019-07-23] MEDS: Meclizine HCl 25 MG Tablet PO ×2 (05:52→13:51)
[2019-07-23 06:48] LABS: Absolute Lymphocyte Count 2.62 X10^3/uL (0.83-4.51); Absolute Neutrophil Count 5.6 X10^3/uL (2.0-7.7); Basophil# 0.08 X10^3/uL; Basophil% 0.9 % (0-1); Eosinophil# 0.15 X10^3/uL; Eosinophils% 1.6 % (0-5); Hemoglobin 9.6 g/dL (13.0-16.5); Lymphocyte # 2.62 X10^3/ul (4.0); Lymphocyte % 28.6 % (19-41); Mean Corpuscular Hgb 27.3 pg (27.0-32.0); Mean Corpuscular Volume 85.2 fL (80-94); Mean Platelet Vol. 8.9 fl (6.2-12.0); Monocyte# 0.75 X10^3/uL; Monocyte% 8.2 % (0-10); NRBC Flagged by Analyzer 0 % (0-5); Neutrophil # 5.55 X10^3/uL (2.7-7.7); Neutrophil % 60.5 % (47-70); Platelet Count 325 K/mm3 (150-450); RBC Distribution Width CV 13.6 % (11.6-14.6); RBC Distribution Width SD 41.9 fl (35.1-43.9); Red Blood Count 3.52 M/mm3 (4.6-6.2); White Blood Count 9.2 K/mm3 (4.4-11.0)
--- NOTE | 2019-07-23 08:34 | MRI_ITS ---
STUDY: MRI BRAIN WITH AND WITHOUT CONTRAST REASON FOR EXAM: Male, 64 years old. vertigo TECHNIQUE: Standardized multiplanar fat and water weighted pulse sequences were obtained. IV 14cc Dotarem was administered for the contrast portion of the examination. COMPARISON: August 29, 2017 FINDINGS: Normal size of the ventricles and extra-axial spaces for the patient''s age. Normal white matter tracts of the supratentorial brain. There is no evidence for recent intracranial ischemia or other cause of cytotoxic edema on diffusion weighted imaging (DWI). Normal T2* images of the brain without demonstrated susceptibility artifact. There is no demonstrated hemosiderin stain. Normal bilateral basal ganglia. Normal thalami. There is no extra-axial fluid accumulation. Normal flow voids within the major intracranial circulation suggesting patency by spin echo criteria. Normal venous enhancement. There is no enhancing intra-axial or extra-axial abnormality. Normal sella turcica, pituitary gland, infundibular stalk, optic chiasm and hypothalamus. Normal tectal plate and pineal gland. Normal midbrain, aide and medulla. Normal cerebellum. Normal basal cisterns. Normal bilateral temporal bones. Normal bilateral internal auditory canals. No demonstrated orbital abnormality, within the constraints of a routine brain study. Normal visualized paranasal sinuses. Normal calvarium and skull base. Normal visualized soft tissue structures. Normal visualized upper cervical spine. MRI/Brain W/WO Contrast IMPRESSION: Normal unenhanced and enhanced MRI of the brain. Electronically Signed: Atul Thao MD at 12:20 EDT , Service support ,
[2019-07-23] MEDS: Aspirin 81 MG TAB.CHEW PO (08:52)
[2019-07-23] MEDS: Lisinopril 20 MG Tablet PO (08:52)
[2019-07-23] MEDS: Enoxaparin 40 MG/0.4 ML Syringe SC (08:53)
[2019-07-23] MEDS: amLODIPine 5 MG Tablet PO (08:53)
[2019-07-23 09:10] VITALS: BP 117/73; PULSE 89; RESP 16; TEMP 36.7; O2SAT 99
[2019-07-23 11:32] VITALS: BP 113/65; PULSE 57; RESP 16; TEMP 36.8; O2SAT 100
--- NOTE | 2019-07-23 13:07 | DCINST_ITS ---
- Discharge Diagnoses Current Active Problems: Current Active and Chronic Problems Vertigo (Acute) You will use the following diet at home:: No restrictions Discharge Activity: Return to Normal Activity Call your doctor if you observe: Shortness of breath, Dizziness, Fainting spells, Chest pain Allergies/Adverse Reactions: Allergies No Known Allergies Allergy (Verified 07/22/19 15:45) Medications to take at Discharge Amlodipine [Norvasc] 5 mg PO DAILY 08/27/15 Aspirin [Aspirin, Baby] 81 mg PO DAILY 08/27/15 Hemp Oil 1 tab PO DAILY 07/22/19 Lisinopril [Zestril] 20 mg PO DAILY 07/22/19 Meclizine HCl [Antivert] 25 mg PO Q8 #30 tab 07/23/19 The following prescriptions were given: Meclizine HCl [Antivert] 25 mg PO Q8 #30 tab Transmission Status: Pending to [facility]/pharmacy #[id number] Primary Care Physician: Austin Brewer DO [Primary Care Provider] - Please follow up with your Primary Care Physician in: 3-5 Days Test Results: Test results from this visit will be discussed in further detail at your follow- up appointment, if applicable. Please Follow Up With: Antonella Peter MD When: 1 Week Proposed Discharge Date: 07/23/19
--- NOTE | 2019-07-23 13:09 | PCM.DC.SUM ---
<Grace Sam - Last Filed: 07/23/19 13:42> Discharge Date and Diagnosis Date of Admission: 07/22/19 Date of Discharge: 07/23/19 - Primary Discharge Diagnosis Active and Suspected Problems 1. Acute BPPV 2. Hypertension 3. Chronic active ileitis-with clinical relapse. 4. History of colon cancer status post laparoscopic right hemicolectomy 5. History of prostate cancer status post radical prostatectomy - Secondary Discharge Diagnosis Chronic Problems Prostate cancer (Chronic) Hypertension (Chronic) Hospital Course and Treatment Imaging Results: Diagnostic Data Brain CT 07/22/19 17:08 IMPRESSION: Normal unenhanced CT scan of the brain. Electronically Signed: Lois Hare MD at 17:35 EDT , Service support , Brain MRI 07/23/19 08:34 IMPRESSION: Normal unenhanced and enhanced MRI of the brain. Electronically Signed: Atul Thao MD at 12:20 EDT , Service support , Operations: None, - Procedures: None Summary of Care Provided: The patient is a 64 year old M admitted 07/22/2019 due to vertigo. 1. Acute BPPV-brain CT unremarkable. Prior admission in 2018 with work-up including MRI which was normal, treated for BPPV at that time as well. Patient's symptoms dramatically improved with scheduled meclizine. Continue scheduled meclizine for another 24 hours at discharge then as needed only. Instructed no driving while using meclizine. Recommend outpatient follow-up with ENT/PT for vestibular therapy. MRI of brain normal. 2. Hypertension-stable, continue lisinopril, amlodipine regimen. 3. Chronic active ileitis-with clinical relapse. Per clinisync records, patient had colonoscopy 05/13/[address] Peter and biopsy revealed chronic active ileitis. Patient was treated with 3-month course of budesonide at that time which was discontinued due to cost of medication. Patient then trialed cholestyramine which he was unable to tolerate. Patient reports his symptoms improved up until the last 1 to 2 months where he has had ongoing diarrhea, general malaise. Stool positive for occult blood. Enteric bacteriology and C. difficile negative. Positive WBC lactoferrin. Discussed with Dr. Peter by phone who feels it is reasonable to initiate budesonide. Anticipate treatment of 8 weeks. He will follow-up with Dr. Peter in office in 2 weeks. Prescription given for budesonide 6 mg daily for 30 days with further Rx by surgery as outpatient. Patient agreeable to this plan. 4. History of colon cancer status post laparoscopic right hemicolectomy 5. History of prostate cancer status post radical prostatectomy 6. Normocytic anemia and mild leukocytosis-secondary to #3. General: Alert, Oriented x3, Cooperative HEENT: Atraumatic, PERRLA, EOMI, Normocephalic Neck: Supple, No JVD, Negative Carotid Bruits Lungs: Clear to auscultation, Normal air movement Cardiovascular: Regular rate, Regular Rhythm, Normal S1, Normal S2, No murmurs Abdomen: Bowel Sounds Present, Soft, Non Tender, Non-Distended Extremities: No clubbing, No cyanosis, No edema, Capillary Refill Less than 3 Seconds Skin: No rashes, No breakdown Musculoskeletal: No Tenderness to Palpation of Joints or Extremities Neurological: Cranial nerves II-XII grossly intact, Neuro grossly intact Psych/Mental Status: Normal Affect, Appropriate Patient seen and examined prior to discharge. Physical assessment as noted above. Patient is stable for discharge with follow up recommendations as noted above. This patient was seen by COLIN Dominique under the supervision of Dr. Raymundo. - Physical Exam Vitals/I&O's: Vital Signs Temp Pulse Resp BP Pulse Ox 98.2 F 57 L 16 113/65 100 07/23/19 11:32 07/23/19 11:32 07/23/19 11:32 07/23/19 11:32 07/23/19 11:32 Oxygen Delivery Method Room Air Weight: 153 lb 10.595 oz Body Mass Index (BMI) 21.4 Orthostatic Vital Signs Start: 07/23/19 03:38 Freq: q24h Status: Active Protocol: Activity Type Activity Date Activity User E-Sign Co-Sign Detail Recorded Client Recorded Date Recorded By Document 07/23/19 03:38 MAB [id number] 07/23/19 03:47 MAB 07/23/19 03:38 Orthostatic Vitals Standing -Blood Pressure (90/60-120/80) 115/76 -Extremity Use Right Arm -Pulse Rate (60-100) 90 Sitting -Blood Pressure (90/60-120/80) 107/75 -Extremity Use Right Arm -Pulse Rate (60-100) 89 Lying -Blood Pressure (90/60-120/80) 108/63 -Extremity Use Right Arm -Pulse Rate (60-100) 83 Intake and Output for Last 24 Hours 07/21/19 07/22/19 07/23/19 23:59 23:59 23:59 Intake Total 1022.5 / 1022.5 2310.0 / 2310.0 Balance 1022.5 / 1022.5 2310.0 / 2310.0 Laboratory Results 07/22/19 16:10: WBC 12.8 H, RBC 4.49 L, Hgb 12.3 L, Hct 37.9 L, MCV 84.4, MCH 27.4, MCHC 32.5, RDW Std Deviation 41.3, RDW Coeff of Yue 13.3, Plt Count 485 H, MPV 9.0, Immature Gran % (Auto) 0.500, Neut % (Auto) 74.9 H, Lymph % (Auto) 15.8 L, [place] % (Auto) 6.9, Eos % (Auto) 1.2, Baso % (Auto) 0.7, Absolute Neuts (auto) 9.5 H, Absolute Lymphs (auto) 2.02, Nucleated RBC % 0 07/22/19 16:10: Sodium 136, Potassium 4.2, Chloride 104, Carbon Dioxide 26.0, Anion Gap 6, BUN 21 H, Creatinine 1.11, Estim Creat Clear Calc 68.75, Est GFR (MDRD) Af Amer 86, Est GFR (MDRD) Non-Af 71, BUN/Creatinine Ratio 18.9, Glucose 171 H, Calcium 9.1 07/22/19 16:10: Hemoglobin A1c 6.1 07/23/19 06:25: WBC 9.2, RBC 3.52 L, Hgb 9.6 L, Hct 30.0 L, MCV 85.2, MCH 27.3, MCHC 32.0, RDW Std Deviation 41.9, RDW Coeff of Yue 13.6, Plt Count 325, MPV 8.9, Immature Gran % (Auto) 0.200, Neut % (Auto) 60.5, Lymph % (Auto) 28.6, [place] % (Auto) 8.2, Eos % (Auto) 1.6, Baso % (Auto) 0.9, Absolute Neuts (auto) 5.6, Absolute Lymphs (auto) 2.62, Nucleated RBC % 0 Current Medications Acetaminophen (Tylenol) 650 mg PO Q6H PRN PRN PRN Reason: Pain Score 1-10/Temp > 100.7 F Amlodipine Besylate (Norvasc) 5 mg PO DAILY [facility] Last Admin: 07/23/19 08:53 Dose: 5 mg Documented by: Aspirin (Aspirin, Baby) 81 mg PO DAILY@0800 [facility] Last Admin: 07/23/19 08:52 Dose: 81 mg Documented by: Diazepam (Valium) 2 mg PO 4X/DAY PRN PRN PRN Reason: VERTIGO Enoxaparin Sodium (Lovenox) 40 mg SC DAILY [facility] Last Admin: 07/23/19 08:53 Dose: 40 mg Documented by: Glucagon () 1 mg IM .X1 PRN PRN Reason: Hypoglycemia Sodium Chloride () 1,000 mls @ 150 mls/hr IV .Q6H40M [facility] Last Admin: 07/23/19 12:46 Dose: 150 mls/hr Documented by: Dextrose (Dextrose 10%-Water) 250 mls @ 999 mls/hr IV .Q16M PRN; Protocol PRN Reason: HYPOGLYCEMIA Lisinopril (Zestril) 20 mg PO DAILY [facility] Last Admin: 07/23/19 08:52 Dose: 20 mg Documented by: Meclizine HCl (Antivert) 25 mg PO Q8 [facility] Stop: 07/23/19 14:01 Last Admin: 07/23/19 05:52 Dose: 25 mg Documented by: Ondansetron HCl (Zofran) 4 mg IV Q8H PRN PRN PRN Reason: NAUSEA/VOMITING Prochlorperazine Edisylate (Compazine Iv) 5 mg IV Q4H PRN PRN PRN Reason: Breakthrough nausea/vomiting Sodium Chloride () 10 - 40 ml IV UD PRN PRN Reason: SALINE FLUSH Discharge Diet: No Restrictions Discharge Activity: Return to Normal Activity Call your doctor if you observe: Shortness of breath, Dizziness, Fainting spells, Chest pain Home Medications: Medications to take at Discharge Amlodipine [Norvasc] 5 mg PO DAILY 08/27/15 Aspirin [Aspirin, Baby] 81 mg PO DAILY 08/27/15 Hemp Oil 1 tab PO DAILY 07/22/19 Lisinopril [Zestril] 20 mg PO DAILY 07/22/19 Budesonide [Budesonide EC] 6 mg PO DAILY #60 capsule.ec 07/23/19 Meclizine HCl [Antivert] 25 mg PO Q8 #30 tab 07/23/19 Following Prescrptions Were Given to Patient: Meclizine HCl [Antivert] 25 mg PO Q8 #30 tab Transmission Status: [facility] by [id number] Budesonide [Budesonide EC] 6 mg PO DAILY #60 capsule.ec Transmission Status: Received by [id number] Primary Care Physician: Austin Brewer DO [Primary Care Provider] - Please follow up with your Primary Care Physician in: 3-5 Days Please Follow Up With: Antonella Peter MD When: 2 Weeks Disposition: Home Minutes spent on discharge:: 35 Patient Condition:: Stable Medical Necessity - Tobacco Use Smoking Status: Current some day smoker Tobacco Use: Cigars Meaningful Use Info Meaningful Use Diagnoses (Choose all that apply): None applicable <Ene Raymundo - Last Filed: 07/23/19 15:12> Discharge Date and Diagnosis - Secondary Discharge Diagnosis Chronic Problems Prostate cancer (Chronic) Hypertension (Chronic) Hospital Course and Treatment Imaging Results: 07/23/19 08:34 MRI Brain [Brain W/WO Contrast] [MRI] Stat Summary of Care Provided: Patient seen by Grace SHAW under my supervision The patient is a 64 year old M who was admitted with a complaint of dizziness and vertigo. He had a history of BPPV diagnosed in a previous admission in August 2017. He had associated nausea and unsteady gait. CT of the brain done was negative for any stroke. He was admitted and managed for vertigo likely due to BPPV. Patient had an MRI on 07/23/2019 which was negative for any evidence of stroke or any acute intracranial pathology. Patient remained stable and he was evaluated by physical therapy. He was discharged home on 07/23/2019. He is to follow-up with ENT and physical therapy for vestibular therapy and also prescribed meclizine. Patient seen and examined prior to discharge. Dizziness had improved and he had no complaints. Vital signs otherwise negative. Labs and vitals reviewed. Home medication reviewed and reconciled. o/e: Vital Signs Height 5 ft 11 in Weight: 153 lb 10.595 oz Weight in Pounds 153.7 lbs Pulse Ox 100 Temperature 98.2 F Pulse Rate [Standing] 90 Pulse Rate [Sitting] 89 Pulse Rate [Lying] 83 Pulse Rate 57 Respiratory Rate 16 Blood Pressure [Standing] 115/76 Blood Pressure [Sitting] 107/75 Blood Pressure [Lying] 108/63 Blood Pressure 113/65 Blood Pressure Position Semi-Fowlers [] General: Alert, Oriented x3, Cooperative HEENT: Atraumatic, PERRLA, EOMI, Normocephalic Neck: Supple, No JVD, Negative Carotid Bruits Lungs: Clear to auscultation, Normal air movement Cardiovascular: Regular rate, Regular Rhythm, Normal S1, Normal S2, No murmurs Abdomen: Bowel Sounds Present, Soft, Non Tender, Non-Distended Extremities: No clubbing, No cyanosis, No edema, Capillary Refill Less than 3 Seconds Skin: No rashes, No breakdown Musculoskeletal: No Tenderness to Palpation of Joints or Extremities Neurological: Cranial nerves II-XII grossly intact, Neuro grossly intact Psych/Mental Status: Normal Affect, Appropriate Plan is for discharge home today. Rest as per Grace Sam NP-C's notes which I have reviewed and endorsed. - Physical Exam Vitals/I&O's: Vital Signs Temp Pulse Resp BP Pulse Ox 98.2 F 57 L 16 113/65 100 07/23/19 11:32 07/23/19 11:32 07/23/19 11:32 07/23/19 11:32 07/23/19 11:32 Oxygen Delivery Method Room Air Weight: 153 lb 10.595 oz Body Mass Index (BMI) 21.4 Orthostatic Vital Signs Start: 07/23/19 03:38 Freq: q24h Status: Active Protocol: Activity Type Activity Date Activity User E-Sign Co-Sign Detail Recorded Client Recorded Date Recorded By Document 07/23/19 03:38 MAB [id number] 07/23/19 03:47 MAB 07/23/19 03:38 Orthostatic Vitals Standing -Blood Pressure (90/60-120/80) 115/76 -Extremity Use Right Arm -Pulse Rate (60-100) 90 Sitting -Blood Pressure (90/60-120/80) 107/75 -Extremity Use Right Arm -Pulse Rate (60-100) 89 Lying -Blood Pressure (90/60-120/80) 108/63 -Extremity Use Right Arm -Pulse Rate (60-100) 83 Intake and Output for Last 24 Hours 07/21/19 07/22/19 07/23/19 23:59 23:59 23:59 Intake Total 1022.5 / 1022.5 2485.0 / 2485.0 Balance 1022.5 / 1022.5 2485.0 / 2485.0 Laboratory Results 07/22/19 16:10: WBC 12.8 H, RBC 4.49 L, Hgb 12.3 L, Hct 37.9 L, MCV 84.4, MCH 27.4, MCHC 32.5, RDW Std Deviation 41.3, RDW Coeff of Yue 13.3, Plt Count 485 H, MPV 9.0, Immature Gran % (Auto) 0.500, Neut % (Auto) 74.9 H, Lymph % (Auto) 15.8 L, [place] % (Auto) 6.9, Eos % (Auto) 1.2, Baso % (Auto) 0.7, Absolute Neuts (auto) 9.5 H, Absolute Lymphs (auto) 2.02, Nucleated RBC % 0 07/22/19 16:10: Sodium 136, Potassium 4.2, Chloride 104, Carbon Dioxide 26.0, Anion Gap 6, BUN 21 H, Creatinine 1.11, Estim Creat Clear Calc 68.75, Est GFR (MDRD) Af Amer 86, Est GFR (MDRD) Non-Af 71, BUN/Creatinine Ratio 18.9, Glucose 171 H, Calcium 9.1 07/22/19 16:10: Hemoglobin A1c 6.1 07/23/19 06:25: WBC 9.2, RBC 3.52 L, Hgb 9.6 L, Hct 30.0 L, MCV 85.2, MCH 27.3, MCHC 32.0, RDW Std Deviation 41.9, RDW Coeff of Yue 13.6, Plt Count 325, MPV 8.9, Immature Gran % (Auto) 0.200, Neut % (Auto) 60.5, Lymph % (Auto) 28.6, [place] % (Auto) 8.2, Eos % (Auto) 1.6, Baso % (Auto) 0.9, Absolute Neuts (auto) 5.6, Absolute Lymphs (auto) 2.62, Nucleated RBC % 0 OBSV E&M: 24025 Observation care discharge
== END 2019-07-23 13:08 | disposition home or self-care (01) ==
LOC: ED 17:33 → PCU 18:32
PROVIDERS: Nurse Practitioner Family; Admitting Provider Internal Medicine; Emergency Provider Emergency Medicine; PCP Family Medicine; Visit Provider Student in an Organized Health Care Education/Training Program
DX: H81.10 Benign paroxysmal vertigo, unspecified ear (principal); I10 Essential (primary) hypertension; K52.9 Noninfective gastroenteritis and colitis, unspecified; Z85.038 Personal history of other malignant neoplasm of large intestine; Z85.46 Personal history of malignant neoplasm of prostate; Z87.891 Personal history of nicotine dependence; Z90.49 Acquired absence of other specified parts of digestive tract; Z79.899 Other long term (current) drug therapy; Z79.82 Long term (current) use of aspirin; D64.9 Anemia, unspecified; R73.9 Hyperglycemia, unspecified
CPT/HCPCS: 36415; 70450; 70553; 80048; 83036; 85025; 93005; 96361; 96372; 96374; 96375; 97161; 97802; 99218; 99285; A9575; J7030; A4216; G0378; J2405

== ENCOUNTER 2019-08-20 18:31 | Emergency (ER) | payer BC, SELFPAY ==
[2019-08-20 18:31] VITALS: BP 134/88; PULSE 79; RESP 20; TEMP 36.8; O2SAT 97; BMI 21.2
--- NOTE | 2019-08-20 18:44 | ED.VIS.GEN ---
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 He went inside to take a meclizine, he swallowed it, went back outside to work as he was a little better, and then he bent over and his symptoms became more severe and he vomited up the meclizine, he thinks. Vertigo and vomiting have persisted. Denies any headache, loss of consciousness, tinnitus, recent earache/infection, diplopia, focal neurologic symptoms in his extremities, or mental status changes. His vision went a little blurry when the vertigo became severe. He had a similar episode around 3 weeks ago, for which he was admitted to the hospital here, and had an MRI that was normal and it was presumed peripheral. No recent travel out of the area. No recent illnesses. Has been staying at home as per the [place] Department of Health orders during the national coronavirus emergency. - Past Medical History (1) Vertigo Status: Chronic (2) Hypertension Status: Chronic (3) Prostate cancer Status: Suspected Past Medical History - Allergies and Home Meds Allergies/Adverse Reactions: Allergies No Known Allergies Allergy (Verified 08/20/19 18:34) Primary Care Physician: Austin Brewer DO [Primary Care Provider] - Surgical History: - - Radical prostatectomy, bilateral pelvic lymph node dissection, laparoscopic right hemicolectomy, appendectomy, right inguinal hernia repair 1960, lumbar back surgery for herniated disc 2012. Lives: Spouse/ Significant Other Smoking Status: Current some day smoker - Family History Maternal Family History: Reports: - - Denies known maternal medical history including cardiac history. Currently living, in her 90s. Paternal Family History: Reports: Heart Disease Review of Systems General: Denies: Chills, Fever, Sweats Eyes: Reports: Blurred Vision - bilaterally. Denies: Diplopia ENT: Denies: Bilateral ear pain, Rhinorrhea, Sore throat Cardiovascular: Denies: Chest pain, Palpitations Respiratory: Denies: Dyspnea, Cough, Dyspnea on exertion Gastrointestinal: Reports: Nausea, Vomiting. Denies: Abdominal pain, Diarrhea, Melena, Hematochezia Genitourinary: Denies: Dysuria, Hematuria, Frequency Musculoskeletal: Denies: Neck pain, Back pain, Swelling, Extremity Pain Skin: Denies: Rash, Wounds Neurological: Reports: - - Vertigo. See HPI.. Denies: Headache, Weakness, Numbness Physical Exam Vital Signs/Narrative: Vital Signs Temp Pulse Resp BP Pulse Ox 08/20/19 18:31 98.3 F 79 20 H 134/88 H 97 Inital Vital Signs reviewed: Yes General: Well nourished, Well developed, No Acute Distress Head: Normocephalic, Atraumatic Eyes: Perrl, EOMI, - - No pathologic nystagmus, no vertical or rotatory nystagmus ENT: Moist mucous membranes, No rhinorrhea, TM's clear. Negative for: Sinus tenderness Neck: Supple, Nontender, No lymphadenopathy, No JVD Cardiovascular: Regular rate, Regular rhythm, No murmurs Respiratory: No distress, CTA bilaterally, Chest nontender Abdomen: Soft, Nontender, Nondistended, Normal bowel sounds Back: Nontender, Normal Inspection Extremities: Nontender, No edema Skin: Normal color, No rash, No Trauma Neurological: Alert, Oriented x3, Cranial nerves II-XII grossly intact, Normal Strength, Normal Sensation, Normal DTR, - - Normal cerebellar exam bilateral upper and lower extremities. NIHSS 0. Psychological: Normal affect, Normal Mood Diagnostic/Tx/Re-eval - Medical Decision Making Patient was given Zofran and as this helped his nausea and his vertigo felt better. He had Valium 5 mg orally ordered. He felt much better before getting it however. We were able to get him out of bed and ambulate him without recurrent vertigo. He feels better enough to go home. I feel comfortable allowing him to do this with instructions for peripheral vertigo and follow-up with otolaryngology if symptoms persist and he is comfortable with that plan, given his recent work-up and negative MRI do not think we need to repeat imaging for since he has the same symptoms and it was worse with movement, more constant, he is not an alcoholic which is the population more likely to have posterior circulation infarcts. Given Rx's for both Valium and Zofran. ED Disposition - Plan for ED Patient: Disposition: Home or Assisted Living Diagnosis: Peripheral vertigo, unspecified Instructions: ED Vertigo Unspecified Prescriptions: Diazepam [Valium] 5 mg PO Q8 PRN #10 tablet PRN Reason: Vertigo Transmission Status: [id number] Ondansetron [Zofran Odt] 8 mg PO Q8H PRN PRN #20 tab PRN Reason: Nausea Transmission Status: Pending to [id number] Referrals: Td Lainez MD [STAFF PHYSICIAN] - As Needed
[2019-08-20] MEDS: Ondansetron ODT 4 MG Tablet 8 MG PO (18:54)
[2019-08-20 20:07] VITALS: BP 138/85; PULSE 68; RESP 14; O2SAT 97
== END 2019-08-20 20:55 | disposition home or self-care (01) ==
PROVIDERS: Emergency Provider Emergency Medicine; PCP Family Medicine
DX: H81.399 Other peripheral vertigo, unspecified ear (principal); I10 Essential (primary) hypertension; Z82.49 Family history of ischemic heart disease and other diseases of the circulatory system; Z85.46 Personal history of malignant neoplasm of prostate; F17.200 Nicotine dependence, unspecified, uncomplicated
CPT/HCPCS: 99284

== ENCOUNTER → 2019-11-09 11:20 | Outpatient (CLI) | payer BC, SELFPAY ==
[2019-11-09 13:54] LABS: Hepatitis B Surface Antigen Non-Reactive (Nonreactive)
[2019-11-13 20:07] LABS: QNTFERON TB Mitogen Value 8.89 IU/mL (.); QNTFERON TB Nil Value 0.02 IU/mL (.); QNTFERON TB1+ Ag Value 0.02 IU/mL (.); QNTFERON TB2+ Ag Value 0.02 IU/mL (.)
[2019-11-13 23:43] LABS: QNTIFERON TB Positive Criteria Negative (Negative)
== END ==
PROVIDERS: PCP Family Medicine; Referring Provider Internal Medicine Gastroenterology; Visit Provider Internal Medicine Gastroenterology
DX: K50.90 Crohn's disease, unspecified, without complications (principal)
CPT/HCPCS: 36415; 86480; 87340

== ENCOUNTER → 2019-12-08 10:20 | Outpatient (CLI) | payer BC, SELFPAY ==
[2019-12-08 10:36] VITALS: BP 162/89; PULSE 85; RESP 14; TEMP 37.3; O2SAT 100; BMI 20.7
[2019-12-08 12:40] VITALS: BP 140/91; PULSE 67; RESP 16; TEMP 36.2; O2SAT 100
== END ==
PROVIDERS: PCP Family Medicine; Referring Provider Internal Medicine Gastroenterology; Visit Provider Internal Medicine Gastroenterology
DX: K50.00 Crohn's disease of small intestine without complications (principal)
CPT/HCPCS: J7050; A4216; J3358

== ENCOUNTER → 2020-04-25 10:48 | Outpatient (CLI) | payer BC, SELFPAY ==
[2019-12-08 10:36] VITALS: BMI 20.7
[2020-04-25 12:46] LABS: Hematocrit 40.2 % (40-54); Hemoglobin 12.7 g/dL (13.0-16.5); Mean Corp Hgb Conc 31.6 g/dL (32-36); Mean Corpuscular Volume 88.5 fL (80-94); Mean Platelet Vol. 9.4 fl (6.2-12.0); Platelet Count 331 K/mm3 (150-450); RBC Distribution Width CV 13.3 % (11.6-14.6); RBC Distribution Width SD 43.8 fl (35.1-43.9); Red Blood Count 4.54 M/mm3 (4.6-6.2); White Blood Count 7.4 K/mm3 (4.4-11.0)
[2020-04-25 13:04] LABS: ALB/GLOB Ratio 0.8 RATIO (0.9-2.4); AST(SGOT) 7 U/L (15-37); Alanine Aminotransfer ALT/SGPT 11 U/L (16-61); Albumin, Serum 3.3 g/dL (3.2-5.0); Alkaline Phosphatase 86 U/L (45-117); Anion Gap 3 (5-15); BUN 15 mg/dL (7-18); BUN/Creat Ratio 14.3 RATIO (10-20); Chloride 106 mmol/L (98-107); Creatinine, Serum 1.05 mg/dL (0.70-1.30); EST Glomerular Filtration Rate 75 mL/min (>60); Est Glom Filt Rate - Afr Amer 91 mL/min (>60); Globulin 3.9 g/dL (2.2-4.2); Glucose 101 mg/dL (74-106); Potassium 4.1 mmol/L (3.5-5.1); Protein, Total 7.2 g/dL (6.4-8.2); Sodium Level 139 mmol/L (136-145)
== END ==
PROVIDERS: PCP Family Medicine; Referring Provider Internal Medicine Gastroenterology; Visit Provider Internal Medicine Gastroenterology
DX: K50.90 Crohn's disease, unspecified, without complications (principal)
CPT/HCPCS: 36415; 80053; 85027; 86140

== ENCOUNTER → 2020-07-16 12:49 | Outpatient (CLI) | payer OTHER, SELFPAY ==
[2019-12-08 10:36] VITALS: BMI 20.7
[2020-07-16 14:20] LABS: PSA,Total- Diagnostic 0.02 ng/mL (0.0-4.0)
== END ==
PROVIDERS: PCP Family Medicine; Referring Provider Urology; Visit Provider Urology
DX: Z85.46 Personal history of malignant neoplasm of prostate (principal)
CPT/HCPCS: 36415; 84153

== ENCOUNTER → 2020-11-26 13:21 | Outpatient (CLI) | payer OTHER, SELFPAY ==
[2019-12-08 10:36] VITALS: BMI 20.7
--- NOTE | 2020-11-26 13:23 | CT_ITS ---
STUDY: CT ENTEROGRAPHY WITH CONTRAST REASON FOR EXAM: Male, 65 years old. CROHN''S. Partial colectomy. Status post appendectomy and prostatectomy. RADIATION DOSAGE (If Supplied By Facility): CTDIvol = ( 16.85 ) mGy, DLP = ( 1183.58 ) mGycm TECHNIQUE: Transaxial images were obtained from the dome of the diaphragm to the symphysis pubis with oral contrast. 450ml of Volumen was administered orally at 60 minutes and 40 minutes and 225ml of Volumen was administered 20 minutes and 10 minutes prior to scanning, to a total of 1,350ml. Oral and amp; IV Breeza Neutral and amp; 100mL Isovue-370 was administered intravenously. Sagittal and coronal images were reconstructed. TECHNICAL QUALITY: Image Quality: Satisfactory Small Bowel Distension: Adequate. Individualized dose optimization techniques were used for this CT. COMPARISON: Comparison is made with prior study dated 07/06/2019. FINDINGS: Bowel: Bowel wall thickening: Absent. Skip lesions: None. Vascularity: Normal. Enhancement: Normal. Fistula: None. Abscess: None. Other Findings: Stable mild increased linear markings at the lung bases suggestive of basilar scarring. The visualized portions of the heart are within normal limits Stable scattered small hepatic cysts. Normal gallbladder and extrahepatic biliary system. Normal spleen. Normal pancreas. Normal bilateral adrenal glands. Normal right kidney. Normal left kidney. Normal visualized stomach. The patient is status post partial right hemicolectomy with the anastomosis. Status post cholecystectomy. Scattered atherosclerotic calcific plaques. Oormal interior vena cava. Normal retroperitoneum. Normal urinary bladder. Status post prostatectomy. Normal abdominal wall. Normal osseous structures. CT/Abdomen/Pelvis WITH Contrast IMPRESSION: Status post partial resection of the right hemicolon with the ileocolic anastomosis. No acute abnormality is seen. Stable small hepatic cysts. Electronically Signed: Justyn Lowe MD at 9:31 EDT , Service support ,
[2020-11-26 13:41] LABS: CREATININE FINGERSTICK 1.2 mg/dL (0.70-1.30); EGFR FINGERSTICK > 60.0000 mL/min (>60)
== END ==
PROVIDERS: PCP Family Medicine; Referring Provider Internal Medicine Gastroenterology; Visit Provider Internal Medicine Gastroenterology
DX: K50.90 Crohn's disease, unspecified, without complications (principal)
CPT/HCPCS: 74177; Q9967

== ENCOUNTER → 2021-03-05 13:10 | Outpatient (CLI) | payer OTHER, SELFPAY ==
--- NOTE | 2021-03-05 13:12 | RAD_ITS ---
STUDY: X-RAY - CERVICAL SPINE REASON FOR EXAM: Male, 65 years old. Persistent neck pain. TECHNIQUE: 5 view(s) of the cervical spine were obtained. COMPARISON: 11/30/2018. FINDINGS: Osteopenia. Normal anterior atlantoaxial articulation. Normal odontoid process. Normal cervical lordosis. Diffuse uncovertebral and facet sclerosis. Intervertebral disc space narrowing at C5-6 and C6-7. Mild anterior bony neural foraminal encroachment C5-6. The soft tissue structures are unremarkable. RAD/Cerv Spine 4 or 5 Views IMPRESSION: Osteopenia with minimal lower cervical spondylosis as described. No acute abnormality. Electronically Signed: Bry Barnes MD at 16:34 EDT , Service support ,
== END ==
PROVIDERS: PCP Family Medicine; Referring Provider Family Medicine; Visit Provider Family Medicine
DX: M54.2 Cervicalgia (principal)
CPT/HCPCS: 72050

== ENCOUNTER → 2021-08-29 | Outpatient (CLI) | payer BC, SELFPAY ==
[2021-08-29 15:56] LABS: PSA,Total- Diagnostic 0.02 ng/mL (0.0-4.0)
== END | disposition home or self-care (01) ==
LOC: LAB 13:44
PROVIDERS: PCP Family Medicine; Visit Provider Urology
DX: C61 Malignant neoplasm of prostate (principal)
CPT/HCPCS: 36415; 84153

== ENCOUNTER 2022-03-20 22:39 | Emergency (ER) | payer BC, SELFPAY ==
[2022-03-20 22:40] VITALS: BP 155/90; PULSE 86; RESP 18; TEMP 37.1; O2SAT 100; BMI 23.0
--- NOTE | 2022-03-20 22:44 | EKG12_ITS ---
Test Reason : CP Blood Pressure : / mmHG Vent. Rate : 075 BPM Atrial Rate : 075 BPM P-R Int : 206 ms QRS Dur : 088 ms QT Int : 362 ms P-R-T Axes : 060 039 073 degrees QTc Int : 404 ms Normal sinus rhythm Normal ECG Confirmed by ALBIN ALTAMIRANO, KATHRYN ([id number]), mapping editor ADEN MEDINA ([id number]) on 03/25/2022 9:18:50 A M Referred By: ZARIA Confirmed By:DEMETRIA TALAMANTES MD
--- NOTE | 2022-03-20 22:54 | EDS_ITS ---
HPI History of Present Illness Chief Complaint: Chest Pain Narrative Narrative: Patient presents with 1 day history of chest pain in the left side, it has been mostly constant and he could not sleep last night. Pain does not radiate to arm or leg or neck. He has no back pain or tearing sensation. He has no pleuritic component. No lower extreme edema or calf pain. No travel history. He did have COVID about 2 weeks ago and is recovering well. No recent cough, fevers or chills. PFSH PFSH Medical History Colon cancer Hyperlipidemia Hypertension Prostate cancer Smoker Home Medications amlodipine 5 mg tablet 5 mg PO DAILY BP 08/27/15 [History Last Taken 07/22/19] aspirin 81 mg chewable tablet 81 mg PO DAILY HEART HEALTH 08/27/15 [History Last Taken 07/22/19] hydrocodone-acetaminophen 5-325mg 5mg-325mg 1 tab PO Q6H 3 days #12 tabs 03/20/22 [Rx Last Taken Unknown] Allergy/AdvReac Type Severity Reaction Status Date / Time No Known Allergies Allergy Verified 03/20/22 22:42 Surgical History (Updated 03/20/22 @ 22:51 by Adrian Myles) History of appendectomy Social History Smoking Status: Current some day smoker tobacco type: cigarettes ROS ROS ED ROS Narrative Past medical history: Reviewed, includes hypertension, hypercholesterolemia, Crohn's, recent COVID, history of prostate cancer in remission. Medications: Reviewed Social history: Noncontributory Review of systems: All systems negative except as indicated General: No fever Eyes: No visual changes ENT: No upper airway congestion, normal voice Neck: No neck pain Cardiovascular: Chest pain as in HPI. No palpitations. No pleuritic component Respiratory: No shortness of breath or cough Gastrointestinal: No abdominal pain, nausea vomiting or diarrhea Genitourinary: No dysuria Musculoskeletal: Denies myalgias no difficulty with ambulation Skin: No rash Neurological: No memory loss, confusion or any focal weakness Psych: No recent behavioral changes Hematologic: No easy bleeding or easy bruising EXAM Physical Exam Narrative Exam Narrative: Physical exam General: Well nourished, Well developed, No Acute Distress Head: Normocephalic, Atraumatic Eyes: Conjunctiva not pale ENT: Moist mucous membranes Neck: Supple, Nontender, No lymphadenopathy Cardiovascular: Regular rate, Regular rhythm Respiratory: No distress, CTA bilaterally Abdomen: Soft, Nontender, Nondistended Back: Nontender, Normal Inspection. Negative for: CVA tenderness Extremities: Nontender, No edema Skin: Normal color, No rash Neurological: Alert, Normal Strength, Normal Sensation Psychological: Normal affect Const Vital Signs: 03/20/22 22:40 03/20/22 22:49 03/20/22 23:40 Temperature 98.8 F Temperature Source Temporal Pulse Rate 86 68 Respiratory Rate 18 18 Respiratory Effort Normal Blood Pressure 155/90 H 140/96 H Blood Pressure Mean 111 110 Pulse Ox 100 100 Oxygen Delivery Method Room Air Room Air Heart Score History: Slightly/Non-Suspicious ECG: Normal Age: >/= 65 years Risk Factors: 1 or 2 Risk Factors Troponin: </= Normal Limit Score: 3 MDM MDM MDM Narrative Medical decision making narrative: Patient's work-up is normal. Chest x-ray is normal EKG is normal troponin is negative and D-dimer is negative. He does have a history of prostate cancer I told him to follow-up with urologist and/or his oncologist, he may need a PET scan which would be the only other worry I would have for his chest pain, I aramis ot reproduce that pain so it may be something going on in his ribs. At this time I believe he stable for discharge I will give him analgesia. Lab Data Labs: Laboratory Results - last 24 hr 03/20/22 03/20/22 03/20/22 22:50 22:50 22:50 WBC 8.3 RBC 4.60 Hgb 13.1 Hct 40.1 MCV 87.2 MCH 28.5 MCHC 32.7 RDW Std Deviation 42.1 RDW Coeff of Yue 13.3 Plt Count 450 MPV 9.1 Immature Gran % (Auto) 0.400 Neut % (Auto) 51.5 Lymph % (Auto) 35.8 [place] % (Auto) 8.2 Eos % (Auto) 2.9 Baso % (Auto) 1.2 H Absolute Neuts (auto) 4.3 Absolute Lymphs (auto) 2.97 Nucleated RBC % 0 D-Dimer Quant (PE/DVT) 0.40 Sodium 139 Potassium 4.2 Chloride 104 Carbon Dioxide 28.0 Anion Gap 7 BUN 12 Creatinine 1.10 Estim Creat Clear Calc 69.93 Est GFR (MDRD) Af Amer 86 Est GFR (MDRD) Non-Af 71 BUN/Creatinine Ratio 10.9 Glucose 102 Calcium 9.2 Total Bilirubin 0.40 AST 11 L ALT 18 Alkaline Phosphatase 87 Troponin I High Sens 5 Total Protein 7.9 Albumin 3.5 Globulin 4.4 H Albumin/Globulin Ratio 0.8 L Radiography Diagnostic Testing: Clinical Impression(s) from Imaging Studies Chest X-Ray 03/20/22 23:10 IMPRESSION: No radiographic evidence of acute cardiopulmonary disease. Electronically Signed: Najma Barnard MD at 23:40 EST , Chest x-ray read by me is normal. EKG Initial EKG: Comments: Sinus rhythm with a rate of 75. Normal FL and QTc intervals. No ischemic changes. Normal EKG. Interpreted by emergency Dr. Discharge Plan Triage Chief Complaint: Chest Pain ED Provider: Luigi Cook Dx/Rx/DC Orders Clinical Impression: Chest pain, Hypertension Instructions: ED Chest Pain, Noncardiac Prescriptions: New hydrocodone-acetaminophen 5-325 mg tablet 1 tab PO Q6H 3 Days Qty: 12 0RF No Action amlodipine 5 MG tablet 5 mg PO DAILY aspirin 81 MG tablet,chewable 81 mg PO DAILY Primary Care Provider: Austin Brewer Referrals: Jey Becerra MD [Med Staff - Active Staff] - Austin Brewer DO [Primary Care Provider] - 3-5 Days Disposition Disposition: Home, Self Care
[2022-03-20 22:58] LABS: Absolute Lymphocyte Count 2.97 X10^3/uL (0.83-4.51); Absolute Neutrophil Count 4.3 X10^3/uL (2.0-7.7); Basophil% 1.2 % (0-1); Eosinophil# 0.24 X10^3/uL; Eosinophils% 2.9 % (0-5); Hematocrit 40.1 % (40-54); Hemoglobin 13.1 g/dL (13.0-16.5); Lymphocyte # 2.97 X10^3/ul (0.83-4.51); Lymphocyte % 35.8 % (19-41); Mean Corp Hgb Conc 32.7 g/dL (32-36); Mean Corpuscular Hgb 28.5 pg (27.0-32.0); Mean Corpuscular Volume 87.2 fL (80-94); Mean Platelet Vol. 9.1 fl (6.2-12.0); Monocyte# 0.68 X10^3/uL; Monocyte% 8.2 % (0-10); NRBC Flagged by Analyzer 0 % (0-5); Neutrophil # 4.27 X10^3/uL (2.7-7.7); Neutrophil % 51.5 % (47-70); Platelet Count 450 K/mm3 (150-450); RBC Distribution Width CV 13.3 % (11.6-14.6); RBC Distribution Width SD 42.1 fl (35.1-43.9); White Blood Count 8.3 K/mm3 (4.4-11.0)
[2022-03-20] MEDS: Ketorolac 15 MG/ML Vial IV (23:01)
--- NOTE | 2022-03-20 23:10 | RAD_ITS ---
EXAM: XR CHEST, 1 VIEW CLINICAL INDICATION: cp TECHNIQUE: Frontal view of the chest. This report was created using [employer] report generation technology. COMPARISON: May 27, 2017. FINDINGS: LUNGS AND PLEURAL SPACES: Unremarkable. No consolidation or edema. No pneumothorax. No effusion. HEART: Unremarkable. Cardiac silhouette not enlarged. MEDIASTINUM: Central airways and mediastinal contour are unremarkable. BONES/JOINTS: Unremarkable. SOFT TISSUES: Unremarkable. RAD/Chest 1 View (Portable) IMPRESSION: No radiographic evidence of acute cardiopulmonary disease. Electronically Signed: Najma Barnard MD at 23:40 EST ,
[2022-03-20 23:18] LABS: ALB/GLOB Ratio 0.8 RATIO (0.9-2.4); AST(SGOT) 11 U/L (15-37); Alanine Aminotransfer ALT/SGPT 18 U/L (16-61); Albumin, Serum 3.5 g/dL (3.2-5.0); Alkaline Phosphatase 87 U/L (45-117); Anion Gap 7 (5-15); BUN 12 mg/dL (7-18); BUN/Creat Ratio 10.9 RATIO (10-20); Calcium,Total 9.2 mg/dL (8.5-10.1); Chloride 104 mmol/L (98-107); EST Glomerular Filtration Rate 71 mL/min (>60); Est Glom Filt Rate - Afr Amer 86 mL/min (>60); Estimated Creatinine Clearance 69.93 ml/min; Globulin 4.4 g/dL (2.2-4.2); Glucose 102 mg/dL (74-106); Potassium 4.2 mmol/L (3.5-5.1); Protein, Total 7.9 g/dL (6.4-8.2); Sodium Level 139 mmol/L (136-145); Troponin-I HS 5 pg/mL (3.0-78.0)
[2022-03-20 23:40] VITALS: BP 140/96; PULSE 68; RESP 18; O2SAT 100
[2022-03-20] MEDS: oxyCODONE 5 MG Tablet PO (23:50)
== END 2022-03-20 23:57 | disposition home or self-care (01) ==
PROVIDERS: Emergency Provider Emergency Medicine; PCP Family Medicine; Visit Provider Emergency Medicine
DX: R07.9 Chest pain, unspecified (principal); I10 Essential (primary) hypertension; F17.210 Nicotine dependence, cigarettes, uncomplicated; E78.00 Pure hypercholesterolemia, unspecified; E78.5 Hyperlipidemia, unspecified
CPT/HCPCS: 71045; 80053; 84484; 85025; 85379; 93005; 96361; 96374; 99285; J7030; A4216

== ENCOUNTER → 2022-04-16 | Outpatient (CLI) | payer BC, SELFPAY ==
--- NOTE | 2022-04-16 16:09 | STRESSREP_ITS ---
Stress Test Report Date: 04-16-2022 Procedure: Pharmacologic stress nuclear imaging study Indications: Chest pain Consent: Per the patient Procedure: The patient underwent pharmacologic (Regadenoson 0.4mg ) evaluation with a peak heart rate of 111 beats per minute (72%predicted maximal heart rate) and a resting blood pressure of 122/84 mmHg and a peak blood pressure of 128/74 mmHg. The baseline ECG demonstrated sinus bradycardia. The peak pharmacologic ECG demonstrated no obvious ECG changes. There were no cardiac dysrhythmias pretest, during pharmacologic infusion, or recovery. There was no complaint of chest discomfort during pharmacologic infusion or recovery. The examination was discontinued secondary to completion of protocol. Impression: 1. Pharmacologic (Regadenoson) evaluation 2. Peak pharmacologic ECG with no obvious ECG changes. 3. There were no cardiac dysrhythmias pretest, during pharmacologic infusion, or recovery. 4. Nuclear images pending Myocardial perfusion imaging study: Technique: The patient was injected with 11.6 millicuries of technetium 99m Cardiolite and subsequently rest SPECT Cardiolite nuclear imaging was obtained in the horizontal long, vertical long, and short axis views. The patient underwent pharmacologic (Regadenoson) evaluation with a peak heart rate of 111 beats per minute (72% percent predicted maximal heart rate) and a resting blood pressure of 122/84 mmHg and a peak blood pressure of 128/74 mmHg. The patient was injected with 34.0 millicuries of technetium 99m Cardiolite and subsequently stress SPECT Cardiolite nuclear imaging was obtained in the horizontal long, vertical long, and short axis views. A gated Cardiolite study at peak stress was obtained. Interpretation: Rest and stress SPECT Cardiolite nuclear imaging status post realignment, normalization, and attenuation correction demonstrate the appearance of body motion during image acquisition and otherwise the appearance of relative uniform tracer uptake and myocardial perfusion appearing within normal limits. There is end systolic thickening and brightening. The gated Cardiolite study demonstrates myocardial thickening and inward wall motion. The reported LVEF is 66%. Impression: 1. Rest and stress SPECT Cardiolite nuclear imaging demonstrate relative uniform tracer uptake and myocardial perfusion appearing within normal limits. 2. The gated Cardiolite study reports an LVEF of 66%. This note was generated with [employer] software. It may contain incorrect words, spelling, and punctuation that were not noted in checking the note before signing.
== END | disposition home or self-care (01) ==
PROVIDERS: PCP Family Medicine; Visit Provider Family Medicine
DX: R07.9 Chest pain, unspecified (principal)
CPT/HCPCS: 78452; 93017; A9500; A4216; J2785

== ENCOUNTER → 2022-09-03 | Outpatient (CLI) | payer BC, SELFPAY ==
[2022-09-03 14:11] LABS: PSA,Total- Diagnostic 0.03 ng/mL (0.0-4.0)
== END | disposition home or self-care (01) ==
LOC: LAB 13:14
PROVIDERS: PCP Family Medicine; Referring Provider Urology; Visit Provider Urology
DX: C61 Malignant neoplasm of prostate (principal)
CPT/HCPCS: 36415; 84153

== ENCOUNTER → 2022-12-17 | Outpatient (CLI) | payer BC, SELFPAY ==
[2022-12-17 12:13] LABS: Erythrocyte Sedimentation Rate 11 mm/hr (0-20)
[2022-12-17 12:15] LABS: Hematocrit 44.9 % (40-54); Hemoglobin 14.4 g/dL (13.0-16.5); Mean Corp Hgb Conc 32.1 g/dL (32-36); Mean Corpuscular Hgb 28.8 pg (27.0-32.0); Mean Corpuscular Volume 89.8 fL (80-94); Platelet Count 323 K/mm3 (150-450); RBC Distribution Width CV 13.7 % (11.6-14.6); White Blood Count 7.6 K/mm3 (4.4-11.0)
[2022-12-17 16:08] LABS: ALB/GLOB Ratio 0.8 RATIO (0.9-2.4); AST(SGOT) 14 U/L (15-37); Alanine Aminotransfer ALT/SGPT 14 U/L (16-61); Albumin, Serum 3.4 g/dL (3.2-5.0); Alkaline Phosphatase 91 U/L (45-117); Anion Gap 4 (5-15); BUN 17 mg/dL (7-18); BUN/Creat Ratio 14.8 RATIO (10-20); Calcium,Total 9.8 mg/dL (8.5-10.1); Chloride 105 mmol/L (98-107); Creatinine, Serum 1.15 mg/dL (0.70-1.30); EST Glomerular Filtration Rate 67 mL/min (>60); Est Glom Filt Rate - Afr Amer 82 mL/min (>60); Glucose 116 mg/dL (74-106); Potassium 4.6 mmol/L (3.5-5.1); Protein, Total 7.4 g/dL (6.4-8.2); Sodium Level 137 mmol/L (136-145)
== END | disposition home or self-care (01) ==
PROVIDERS: PCP Family Medicine; Referring Provider Internal Medicine Gastroenterology; Visit Provider Internal Medicine Gastroenterology
DX: K50.90 Crohn's disease, unspecified, without complications (principal)
CPT/HCPCS: 36415; 80053; 85027; 85652; 86140

== ENCOUNTER → 2023-04-30 | Outpatient (CLI) | payer BC, SELFPAY ==
--- NOTE | 2023-04-30 11:48 | US_ITS ---
STUDY: SCROTUM ULTRASOUND REASON FOR EXAM: Male, 67 years old. PAIN AND MASS LEFT TECHNIQUE: Ultrasound evaluation of the scrotum was performed with color Doppler and static nobles-scale imaging. COMPARISON: None. FINDINGS: RIGHT TESTICLE INTRATESTICULAR: There is a normal size of the right testicle. The right testicle measures 4.3 cm x 3.1 cm x 1.9 cm. There is a homogenous echotexture. There is normal arterial and normal venous vascularity. There is no demonstrated right testicular mass or cyst. EXTRATESTICULAR: The epididymis is normal in size. The epididymis head measures 0.8 cm x 0.9 cm x 1 cm. There is normal vascularity of the epididymis. There is no demonstrated epididymal cystic structure. There is no demonstrated hydrocele. There is no demonstrated varicocele. There is no demonstrated extratesticular mass or cyst. LEFT TESTICLE INTRATESTICULAR: There is a normal size of the left testicle. The left testicle measures 4.3 cm x 2.8 cm x 1.9 cm. There is a homogenous echotexture. There is normal arterial and normal venous vascularity. There is no demonstrated left testicular mass or cyst. EXTRATESTICULAR: The epididymis is normal in size. The epididymis head measures 1.1 cm x 1.4 cm x 0.9 cm. There is normal vascularity of the epididymis. There is a well-defined cystic structure within the epididymis, without internal echoes, consistent with an epididymal cyst. This measures 8 mm x 5 mm x 3 mm. There is no demonstrated hydrocele. There is no demonstrated varicocele. There is no demonstrated extratesticular mass or cyst. US/Testicular with Arterial Flow IMPRESSION: Small left epididymal cyst. Electronically Signed: Justyn Lowe MD at 14:49 EST ,
[2023-04-30 13:52] LABS: Cholesterol 172 mg/dL (200); High Density Lipoprotein 42 mg/dL; Triglycerides 77 mg/dL; Very Low Density Lipoprotein 15 mg/dL (5-40)
== END | disposition home or self-care (01) ==
PROVIDERS: PCP Family Medicine; Referring Provider Nurse Practitioner Family; Visit Provider Nurse Practitioner Family
DX: E78.5 Hyperlipidemia, unspecified (principal); N50.812 Left testicular pain; N50.89 Other specified disorders of the male genital organs
CPT/HCPCS: 36415; 76870; 80061; 93976

== ENCOUNTER → 2023-09-02 | Outpatient (CLI) | payer BC, SELFPAY ==
[2023-09-02 17:22] LABS: PSA,Total- Diagnostic 0.04 ng/mL (0.0-4.0)
== END | disposition home or self-care (01) ==
LOC: LAB 16:20
PROVIDERS: PCP Family Medicine; Visit Provider Registered Nurse
DX: C61 Malignant neoplasm of prostate (principal)
CPT/HCPCS: 36415; 84153

== ENCOUNTER → 2024-02-26 | Outpatient (CLI) | payer BC, SELFPAY ==
[2024-02-26 12:15] LABS: Absolute Lymphocyte Count 1.95 X10^3/uL (0.83-4.51); Absolute Neutrophil Count 5.1 X10^3/uL (2.0-7.7); Basophil# 0.12 X10^3/uL; Basophil% 1.5 % (0-1); Eosinophils% 2.5 % (0-5); Hematocrit 43.8 % (40-54); Hemoglobin 13.9 g/dL (13.0-16.5); Lymphocyte # 1.95 X10^3/ul (0.83-4.51); Mean Corp Hgb Conc 31.7 g/dL (32-36); Mean Corpuscular Hgb 28.3 pg (27.0-32.0); Mean Corpuscular Volume 89.2 fL (80-94); Mean Platelet Vol. 9.5 fl (6.2-12.0); Monocyte# 0.76 X10^3/uL; Monocyte% 9.3 % (0-10); NRBC Flagged by Analyzer 0 % (0-5); Neutrophil # 5.07 X10^3/uL (2.7-7.7); Neutrophil % 62.3 % (47-70); Platelet Count 341 K/mm3 (150-450); RBC Distribution Width CV 13.2 % (11.6-14.6); RBC Distribution Width SD 43.3 fl (35.1-43.9); Red Blood Count 4.91 M/mm3 (4.6-6.2); White Blood Count 8.1 K/mm3 (4.4-11.0)
[2024-02-26 12:21] LABS: Erythrocyte Sedimentation Rate 11 mm/hr (0-20)
[2024-02-26 12:34] LABS: Anion Gap 3 (5-15); BUN 20 mg/dL (7-18); BUN/Creat Ratio 16.4 RATIO (10-20); Calcium,Total 9.5 mg/dL (8.5-10.1); Chloride 105 mmol/L (98-107); Creatinine, Serum 1.22 mg/dL (0.70-1.30); EST Glomerular Filtration Rate 63 mL/min (>60); Est Glom Filt Rate - Afr Amer 76 mL/min (>60); Glucose 109 mg/dL (74-106); Potassium 4.5 mmol/L (3.5-5.1); Sodium Level 136 mmol/L (136-145)
== END | disposition home or self-care (01) ==
LOC: BFHLAB 08:48
PROVIDERS: PCP Family Medicine; Visit Provider Family Medicine
DX: Z01.818 Encounter for other preprocedural examination (principal); R51.9 Headache, unspecified
CPT/HCPCS: 36415; 80048; 85025; 85652; 86140

== ENCOUNTER → 2024-03-31 | Outpatient (CLI) | payer BC, SELFPAY ==
--- NOTE | 2024-03-31 14:51 | CT_ITS ---
INDICATION: CERVICAL DISC DEGENERATION EXAMINATION: CT CERVICAL SPINE - CT Spine Cervical W/O Contrast Injection TECHNIQUE: Helically acquired images were obtained of the cervical spine. 2D reformatted images were reviewed. A radiation dose optimization technique was used for this scan. IV Contrast dosage and agent: None. RADIATION DOSAGE (If Supplied By Facility): CTDIvol = ( 23.56 ) mGy, DLP = ( 475.17 ) mGycm COMPARISON: Prior study dated: 03/31/2024 FINDINGS: VERTEBRAE: No fracture or traumatic subluxation. No discrete lytic or blastic abnormality. Normal alignment. Normal craniocervical junction and cervicothoracic junction. DISCS and SPINAL CANAL: Mild disc space narrowing at C6-C7. Remaining disc spaces are relatively well-maintained. Facet arthropathy throughout. No bony narrowing of the neural foramina or spinal canal. NECK SOFT TISSUES: No prevertebral soft tissue swelling. There is no cervical adenopathy. LUNG APICES: Clear. CT/Spine Cervical without Contras IMPRESSION: Mild degenerative changes. No bony narrowing of the spinal canal. MRI could be performed if clinically indicated. Electronically Signed: Romeo Valverde MD at 21:21 [facility] ,
--- NOTE | 2024-03-31 14:51 | RAD_ITS ---
INDICATION: NECK PAIN/SHOEMAKER EXAMINATION/TECHNIQUE: X-RAY - XR Spine Cervical 6 or More Views COMPARISON: Prior study dated: 03/05/2021 FINDINGS: VERTEBRAE: Preserved vertebral body height. No fracture. No spondylolisthesis. Preservation of the normal cervical lordosis. Mild diffuse facet arthropathy. No evidence of instability on flexion and extension. DISCS: Mild disc space narrowing at C6-C7. This is similar to prior. NECK SOFT TISSUES: No prevertebral soft tissue widening. LUNG APICES: Clear. RAD/Cerv Spine Obl/Flex/Ext Comp IMPRESSION: No evidence of acute fracture or spondylolisthesis. Mild degenerative changes. Similar appearance to prior. Electronically Signed: Romeo Valverde MD at 21:31 EST ,
--- NOTE | 2024-03-31 15:30 | CT_ITS ---
INDICATION: UNILATERAL SHOEMAKER/VERTICAL DIPLOPIA EXAMINATION: CT BRAIN WITH AND WITHOUT CONTRAST - CT Head or Brain WO/W Contrast Injection TECHNIQUE: Multiple axial images were obtained of the brain with and without IV contrast. The protocol utilizes one or more of the following dose reduction techniques: automated exposure control, adjustment of mA and/or kV according to patient size,and/or use of iterative reconstruction technique. IV Contrast dosage and agent: 50 mL of Isovue-300 RADIATION DOSAGE (If Supplied By Facility): CTDIvol = ( 44.99 ) mGy, DLP = ( 1580.97 ) mGycm COMPARISON: Prior study dated: 07/23/2019 FINDINGS: BRAIN PARENCHYMA: No intra- or extra-axial hemorrhage. No evidence of acute infarct. No intracranial mass or mass effect. There is preservation of the nobles/white matter interface. Posterior fossa structures are unremarkable. Mild small vessels changes. No abnormal contrast enhancement. CSF SPACES: Appropriate for age. No hydrocephalus. Basal cisterns are patent. CALVARIUM, SKULL BASE, PARANASAL SINUSES AND MASTOID AIR CELLS: Clear. No discrete lytic or blastic abnormalities. ORBITS: Both globes, extraocular muscles, optic nerves and retrobulbar fat appear unremarkable. ASPECTS Score for Acute Strokes: 10 CT/Brain/Head W/WO Contrast IMPRESSION: No acute intracranial finding. No abnormal enhancement. Electronically Signed: Romeo Valverde MD at 21:19 EST ,
[2024-03-31 15:50] LABS: CREATININE FINGERSTICK 1.1 mg/dL (0.70-1.30); EGFR FINGERSTICK > 60.0000 mL/min (>60)
== END | disposition home or self-care (01) ==
LOC: CT 14:49
PROVIDERS: PCP Family Medicine; Referring Provider Family Medicine; Visit Provider Family Medicine
DX: M54.2 Cervicalgia (principal); R51.9 Headache, unspecified
CPT/HCPCS: 70470; 72052; 72125; Q9967

== ENCOUNTER → 2024-08-25 | Outpatient (CLI) | payer BC, SELFPAY ==
[2024-08-25 18:00] LABS: PSA,Total- Diagnostic 0.04 ng/mL (0.00-4.00)
== END | disposition home or self-care (01) ==
PROVIDERS: PCP Family Medicine; Referring Provider Urology; Visit Provider Urology
DX: C61 Malignant neoplasm of prostate (principal)
CPT/HCPCS: 36415; 84153